=== PATIENT | male | born 1975 | race Caucasian/White ===

== ENCOUNTER 2018-12-26 13:30 | Inpatient (IN) | payer OTHER ==
[2018-12-26 19:57] VITALS: BMI 24.7
--- NOTE | 2018-12-26 20:40 | HP ---
CIWA Score Nausea/Vomitin Muscle Tremors: 4-Moderate,w/Arms Extend Anxiety: 4-Mod. Anxious/Guarded Agitation: 4-Moderately Restless Paroxysmal Sweats: 3 Orientation: 2-Disoriented Date<2 days Tacttile Disturbances: 3-Moderate Itch/Numb/Burn Auditory Disturbances: 2-Mild Harshness/Frighten Visual Disturbances: 2-Mild Sensitivity Headache: 0-None Present CIWA-Ar Total Score: 27 - Admission Criteria OASAS Guidelines: Admission for Medically Managed Detox: Requires at least one of the followin. CIWA greater than 12 2. Seizures within the past 24 hours 3. Delirium tremens within the past 24 hours 4. Hallucinations within the past 24 hours 5. Acute intervention needed for co occurring medical disorder 6. Acute intervention needed for co occurring psychiatric disorder 7. Severe withdrawal that cannot be handled at a lower level of care (continued vomiting, continued diarrhea, abnormal vital signs) requiring intravenous medication and/or fluids 8. Patient presents the following: CIWA greater than 12 Admission Criteria Met: Admission criteria met Admission ROS [facility] Chief Complaint: SEEKING DETOX TXMENT FOR WORSENING WITHDRAWAL SX'S Allergies/Adverse Reactions: Allergies Allergy/AdvReac Type Severity Reaction Status Date / Time No Known Allergies Allergy Verified 12/26/18 20:37 History of Present Illness: 43 Y.O. MALE WITH HX/O POLYSUBSTANCE ABUSE HERE FOR ALCOHOL DETOX. CLIENT IS REFERRED BY HIS OUTPATIENT METHADONE PROGRAM -MMTP. HE REPORTS HIS IS ON METHADONE 115 MG DAILY. LDM TODAY. THIS IS HIS FIRAST ADMISSION HERE. REPORTS LAST DETOX SEVERAL MONTHS AGO. PRESENTS TODAY WITH C/O WORSENING WITHDRAWAL SX' S. CIWA 27. UTOX +THC, PÉREZ, OPI, MTD, BAR, BZO. DENIES ANY SIGNIFICANT PERIOD OF CLEAN TIME. DENIES HX/O SEIZURE, SI/HI/AVH, DRUG OVERDOSE. REPORTS HE DRINKS DAILY. LAST DRINK THIS MORNING. HOMLESS, UNEMPLOYED, DENIES LEGALS. PMHX- DENIES PSYCH-DENIES Exam Limitations: No Limitations - Ebola screening Have you traveled outside of the country in the last 21 days: No Have you had contact with anyone from an Ebola affected area: No Have you been sick,other than usual withdrawal symptoms: No - Review of Systems Constitutional: Chills, Loss of Appetite, Malaise, Night Sweats, Changes in sleep EENT: reports: Nose Congestion Respiratory: reports: No Symptoms reported Cardiac: reports: No Symptoms Reported GI: reports: Nausea, Poor Fluid Intake : reports: No Symptoms Reported Musculoskeletal: reports: Other (GENRALIZED MALAISE) Integumentary: reports: Flushing Neuro: reports: No Symptoms reported, Headache, Tremors Endocrine: reports: No Symptoms Reported Hematology: reports: No Symptoms Reported Psychiatric: reports: Orientated x3, Agitated, Anxious, Depressed Other Systems: Reviewed and Negative Patient History - Patient Medical History Hx Anemia: No Hx Asthma: No Hx Chronic Obstructive Pulmonary Disease (COPD): No Hx Cancer: No Hx Cardiac Disorders: No Hx Congestive Heart Failure: No Hx Hypertension: No Hx Hypercholesterolemia: No Hx Pacemaker: No HX Cerebrovascular Accident: No Hx Seizures: No Hx Dementia: No Hx Diabetes: No Hx Gastrointestinal Disorders: No Hx Liver Disease: No Hx Genitourinary Disorders: No Hx Sexually Transmitted Disorders: No Hx Renal Disease (ESRD): No Hx Thyroid Disease: No Hx Human Immunodeficiency Virus (HIV): No Hx Hepatitis C: No Hx Depression: No Hx Suicide Attempt: No Hx Bipolar Disorder: No Hx Schizophrenia: No Other Medical History: DENIES - Patient Surgical History Past Surgical History: No - PPD History Previous Implant?: Yes Documented Results: Negative w/o proof Implanted On Prior [facility] Admission?: No PPD to be Administered?: Yes - Smoking Cessation Smoking history: Current every day smoker Have you smoked in the past 12 months: Yes Aproximately how many cigarettes per day: 40 Cigars Per Day: 0 Hx Chewing Tobacco Use: No Initiated information on smoking cessation: Yes 'Breaking Loose' booklet given: 12/26/18 - Substance & Tx. History Hx Alcohol Use: Yes Hx Substance Use: Yes Substance Use Type: Alcohol, Cocaine, Heroin, Marijuana, Tranquilizers (XANAX) Hx Substance Use Treatment: Yes ([facility] - Substances Abused VODKA Route: Oral Frequency: Daily Amount used: 5 PINTS Age of first use: 9 Date of Last Use: 12/26/18 XANAX Route: Oral Frequency: Daily Amount used: 10MG Age of first use: 20 Date of Last Use: 12/26/18 COCAINE Route: Smoking Frequency: Daily Amount used: $300 Age of first use: 20 Date of Last Use: 12/22/18 HEROIN Route: Injection Frequency: Daily Amount used: 10 BAGS Age of first use: 9 Date of Last Use: 12/26/18 Family Disease History - Family Disease History Family History: Denies (ESTRANGED) Admission Physical Exam [facility] - Vital Signs Vital Signs: Vital Signs - 24 hr 12/26/18 19:54 Temperature 97.9 F Pulse Rate 80 Respiratory 18 Rate Blood Pressure 138/79 - Physical General Appearance: Yes: Appropriately Dressed, Moderate Distress, Tremorous, Irritable, Anxious, Other (FLUSHED DISHELVED UNKEPT) HEENTM: Yes: EOMI, Normal ENT Inspection, Normocephalic, Normal Voice, BREANNE, Nasal Congestion, Other (MISSING TEETH) Respiratory: Yes: Chest Non-Tender, Lungs Clear, Normal Breath Sounds, No Respiratory Distress, No Accessory Muscle Use Neck: Yes: No masses,lesions,Nodules, Supple, Trachea in good position Breast: Yes: Breast Exam Deferred Cardiology: Yes: Regular Rhythm, Regular Rate, S1, S2 Abdominal: Yes: Normal Bowel Sounds, Non Tender, Flat, Soft Genitourinary: Yes: Within Normal Limits (NO C/O OFFERED) Back: Yes: Normal Inspection Musculoskeletal: Yes: full range of Motion, Gait Steady Extremities: Yes: Normal Range of Motion, Non-Tender, Tremors, Swelling (PUFFY HANDS) 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: Yes: Alert, Motor Strength 5/5 Integumentary: Yes: Warm, Other (FLUSHED PUFFY DIRTY/ UNKEPT) Lymphatic: Yes: Within Normal Limits - Diagnostic (1) Polysubstance dependence including opioid drug with daily use Current Visit: Yes Status: Acute (2) Alcohol dependence with uncomplicated withdrawal Current Visit: Yes Status: Acute (3) Anxiolytic withdrawal without complication Current Visit: Yes Status: Acute (4) Cannabis dependence, uncomplicated Current Visit: Yes Status: Acute (5) Cocaine abuse, uncomplicated Current Visit: Yes Status: Acute (6) Methadone maintenance therapy patient Current Visit: Yes Status: Acute (7) Dry mucous membranes Current Visit: Yes Status: Acute (8) At risk for dehydration due to poor fluid intake Current Visit: Yes Status: Acute (9) Nicotine dependence Current Visit: Yes Status: Acute Qualifiers: Nicotine product type: cigarettes Substance use status: uncomplicated Qualified Code(s): F17.210 - Nicotine dependence, cigarettes, uncomplicated (10) Homeless Current Visit: Yes Status: Acute (11) Flushed complexion Current Visit: Yes Status: Acute Cleared for Admission [facility] - Detox or Rehab [facility] Level of Care: Medically Managed Detox Regimen/Protocol: Librium Claeared for Rehab Admission: No [facility] Breath Alcohol Content Breath Alcohol Content: 0 Urine Drug Screen - Results Drug Screen Negative: No Urine Drug Screen Results: THC-Marijuana, PÉREZ-Cocaine, OPI-Opiates, BAR- Barbiturates, BZO-Benzodiazepines, MTD-Methadone Inpatient Rehab Admission - Rehab Decision to Admit Inpatient rehab admission?: No
[2018-12-26] MEDS ORDERED: P-EPHED 60MG/TRIPROLIDI 2.5MG TABLET PO PRN (20:57)
[2018-12-26] MEDS ORDERED: MENTHOL/PHENOL 1 EACH UD MM PRN (20:57)
[2018-12-26] MEDS ORDERED: guaiFENesin/D-METHORPHAN HB 10 ML UNIT-DOSE CUPS PO PRN (20:57)
[2018-12-26] MEDS ORDERED: LOPERAMIDE HCL 2 MG CAPSULE PO PRN (20:57)
[2018-12-26] MEDS ORDERED: hydrOXYzine PAMOATE 50 MG CAPSULE (FP) PO PRN (20:57)
[2018-12-26] MEDS ORDERED: MAG HYDROX/AL HYDROX/SIMETH 30 ML UNIT-DOSE CUP PO PRN (20:57)
[2018-12-26] MEDS ORDERED: MAGNESIUM HYDROX 2400MG/30ML ORAL SUSPENSION 30 ML CUP PO PRN (20:57)
[2018-12-26] MEDS ORDERED: ACETAMINOPHEN 325 MG TABLET (FP) PO PRN (20:57)
[2018-12-26] MEDS ORDERED: IBUPROFEN 400 MG TABLET (FP) PO PRN (20:57)
[2018-12-26] MEDS ORDERED: MAGNESIUM CITRATE 300 ML BOTTLE PO PRN (20:57)
[2018-12-26] MEDS ORDERED: MELATONIN 5 MG TABLETS PO PRN (22:00)
[2018-12-26] MEDS ORDERED: chlordiazePOXIDE HCL 25 MG CAPSULE PO PRN (23:17)
[2018-12-26] MEDS: chlordiazePOXIDE HCL 25 MG CAPSULE PO SCH (23:43)
[2018-12-26] MEDS: THIAMINE HCL 100 MG TABLET (FP) PO SCH (23:44)
[2018-12-27] MEDS: chlordiazePOXIDE HCL 25 MG CAPSULE PO SCH ×4 (06:18→22:17)
[2018-12-27] MEDS ORDERED: METHADONE HCL 10 MG TABLET ONE (09:57)
[2018-12-27] MEDS ORDERED: METHADONE HCL 5 MG TABLET ONE (09:58)
[2018-12-27] MEDS ORDERED: METHADONE HCL 40 MG DISPERSABLE TABLET ONE (09:58)
[2018-12-27] MEDS ORDERED: METHADONE HCL 40 MG DISPERSABLE TABLET PO ONE (10:00)
[2018-12-27] MEDS ORDERED: METHADONE 80 MG, METHADONE 30 MG, METHADONE 5 MG PO ONE (10:00)
[2018-12-27] MEDS ORDERED: METHADONE 80 MG, METHADONE 10 MG PO ONE (10:00)
[2018-12-27] MEDS ORDERED: METHADONE HCL 10 MG TABLET PO ONE (10:00)
[2018-12-27] MEDS: NICOTINE 21 MG/24 HOURS TOPICAL PATCH TD SCH (10:02)
[2018-12-27] MEDS: PRENATAL VITAMINS W/ FOLIC ACID TABLET (FP) PO SCH (10:02)
[2018-12-27] MEDS: NICOTINE POLACRILEX 4 MG GUM BC PRN ×3 (10:54→15:28)
--- NOTE | 2018-12-27 13:31 | PN ---
S CIWA - CIWA Score Nausea/Vomitin-Mild Nausea/No Vomiting Muscle Tremors: 4-Moderate,w/Arms Extend Anxiety: 4-Mod. Anxious/Guarded Agitation: 4-Moderately Restless Paroxysmal Sweats: 1-Minimal Palms Moist Orientation: 3-Disoriented Date>2 days Tacttile Disturbances: 0-None Auditory Disturbances: 0-None Visual Disturbances: 0-None Headache: 1-Very Mild CIWA-Ar Total Score: 18 [facility] Progress Note (SOAP) Subjective: tremor sweating anxiety poor concentration Objective: 12/27/18 13:36 Vital Signs Temperature 98.2 F 12/27/18 09:39 Pulse Rate 84 12/27/18 09:39 Respiratory Rate 18 12/27/18 09:39 Blood Pressure 134/81 12/27/18 09:39 O2 Sat by Pulse Oximetry (%) lab pending Assessment: 12/27/18 13:36 alcohol and benzo withdrawal sx Plan: continue detox
[2018-12-27] MEDS: BACITRACIN 0.9 GM PACKET TP SCH ×2 (13:57→22:33)
[2018-12-27 19:53] LABS: URINE APPEARANCE CLEAR; URINE BILIRUBIN NEGATIVE (<2.0 mg/dL); URINE COLOR DKYELLOW; URINE GLUCOSE (UA) NEGATIVE (NEGATIVE); URINE KETONE NEGATIVE (NEGATIVE); URINE LEUK ESTERASE NEGATIVE (NEGATIVE); URINE NITRITE NEGATIVE (NEGATIVE); URINE PROTEIN 1+ (NEGATIVE); URINE UROBILINOGEN 4.0 E.U/dl mg/dL (0.2-1.0)
[2018-12-27 20:02] LABS: URINE BACTERIA RARE /hpf (NONE SEEN); URINE MUCUS RARE
[2018-12-27] MEDS: THIAMINE HCL 100 MG TABLET (FP) PO SCH (21:54)
[2018-12-28] MEDS ORDERED: METHADONE HCL 10 MG TABLET ONE (05:02)
[2018-12-28] MEDS ORDERED: METHADONE HCL 5 MG TABLET ONE (05:03)
[2018-12-28] MEDS ORDERED: METHADONE HCL 40 MG DISPERSABLE TABLET ONE (05:03)
[2018-12-28] MEDS: chlordiazePOXIDE HCL 25 MG CAPSULE PO SCH ×3 (05:54→17:42)
[2018-12-28] MEDS: METHADONE 80 MG, METHADONE 30 MG, METHADONE 5 MG PO SCH (05:54)
[2018-12-28] MEDS: NICOTINE POLACRILEX 4 MG GUM BC PRN ×6 (05:56→19:38)
[2018-12-28] MEDS ORDERED: METHADONE HCL 10 MG TABLET PO SCH (06:00)
[2018-12-28] MEDS ORDERED: METHADONE HCL 40 MG DISPERSABLE TABLET PO SCH (06:00)
[2018-12-28] MEDS ORDERED: METHADONE 80 MG, METHADONE 10 MG PO SCH (06:00)
[2018-12-28] MEDS ORDERED: BACITRACIN 15 GM TUBE TOPICAL OINTMENT TP SCH (09:00)
[2018-12-28] MEDS: NICOTINE 21 MG/24 HOURS TOPICAL PATCH TD SCH (09:28)
--- NOTE | 2018-12-28 09:30 | PN ---
S CIWA - CIWA Score Nausea/Vomitin-Mild Nausea/No Vomiting Muscle Tremors: 3 Anxiety: 1-Mildly Anxious Agitation: 3 Paroxysmal Sweats: 1-Minimal Palms Moist Orientation: 3-Disoriented Date>2 days Tacttile Disturbances: 0-None Auditory Disturbances: 0-None Visual Disturbances: 0-None Headache: 1-Very Mild CIWA-Ar Total Score: 13 S Progress Note (SOAP) Subjective: patient requests to add methadone 20-30 mg more to 115 mg current dosage based on consultation with methadone program provider that unknown dosage were consumed dose of methadone on 12/23/18, 12/24/18, possible zero dosage of methadone on 12/25/18 case discussed with methadone program provider patient admitted to methadone program on 12/14/18 at 90 mg po daily upon discharged from [facility] received one dose of 90 mg on 12/14/18 at the methadone program patient admitted to [facility] on 12/14/18 discharged on 12/21/18 taking methadone 115 mg po patient returned to methadone program on 12/22/18 continue methadone 115 mg po daily with take home bottles of 115 mg no show on 12/25/18 return to methadone program on 12/26/18 received methadone 90 mg due to "computer switched". patient admitted to [facility] for alcohol and benzo detox on 12/26/18 received methadone 115 mg on 12/27/18 the mortgage underwriter concurred with the methadone provider that one 115 mg dose of methadone may worth to reassess second or third consecutive doses anxiety restlessness overly worry tremor sweating Objective: 12/28/18 15:59 Vital Signs Temperature 98.0 F 12/28/18 13:34 Pulse Rate 89 12/28/18 13:34 Respiratory Rate 18 12/28/18 13:34 Blood Pressure 138/85 12/28/18 13:34 O2 Sat by Pulse Oximetry (%) Laboratory Last Values Urine Color Dkyellow 12/27/18 15:40 Urine Appearance Clear 12/27/18 15:40 Urine pH 7.0 (5.0-8.0) 12/27/18 15:40 Ur Specific [place] 1.026 (1.010-1.035) 12/27/18 15:40 Urine Protein 1+ (NEGATIVE) H 12/27/18 15:40 Urine Glucose (UA) Negative (NEGATIVE) 12/27/18 15:40 Urine Ketones Negative (NEGATIVE) 12/27/18 15:40 Urine Blood Negative (NEGATIVE) 12/27/18 15:40 Urine Nitrite Negative (NEGATIVE) 12/27/18 15:40 Urine Bilirubin Negative (<2.0 mg/dL) 12/27/18 15:40 Urine Urobilinogen 4.0 e.u/dl mg/dL (0.2-1.0) 12/27/18 15:40 Ur Leukocyte Esterase Negative (NEGATIVE) 12/27/18 15:40 Urine WBC (Auto) 1 /hpf (3-5) 12/27/18 15:40 Urine RBC (Auto) 4 /hpf (0-3) 12/27/18 15:40 Urine Bacteria Rare /hpf (NONE SEEN) 12/27/18 15:40 Urine Mucus Rare 12/27/18 15:40 lab noted Assessment: 12/28/18 15:59 withdrawal sx Plan: continue detox
[2018-12-28] MEDS: PRENATAL VITAMINS W/ FOLIC ACID TABLET (FP) PO SCH (10:08)
[2018-12-28] MEDS: BACITRACIN 0.9 GM PACKET TP SCH ×2 (14:03→21:02)
[2018-12-28] MEDS ORDERED: FLUCONAZOLE 100 MG TABLET (UD) PO SCH (16:30)
[2018-12-28] MEDS: THIAMINE HCL 100 MG TABLET (FP) PO SCH (21:02)
[2018-12-28] MEDS ORDERED: traZODone HCL 50 MG TABLET (FP) PO ONE (22:00)
[2018-12-28] MEDS: chlordiazePOXIDE 5 MG CAPSULE PO SCH (22:41)
[2018-12-29] MEDS ORDERED: METHADONE HCL 40 MG DISPERSABLE TABLET ONE (05:06)
[2018-12-29] MEDS ORDERED: METHADONE HCL 5 MG TABLET ONE (05:06)
[2018-12-29] MEDS ORDERED: METHADONE HCL 10 MG TABLET ONE (05:06)
[2018-12-29] MEDS: BACITRACIN 0.9 GM PACKET TP SCH (05:42)
[2018-12-29] MEDS: chlordiazePOXIDE 5 MG CAPSULE PO SCH (05:42)
[2018-12-29] MEDS: METHADONE 80 MG, METHADONE 30 MG, METHADONE 5 MG PO SCH (05:43)
[2018-12-29] MEDS: NICOTINE POLACRILEX 4 MG GUM BC PRN (06:19)
[2018-12-29 06:51] VITALS: BP 123/73; PULSE 68; TEMP 97.3
[2018-12-29] MEDS ORDERED: chlordiazePOXIDE HCL 10 MG CAPSULE PO SCH (23:00)
--- NOTE | 2018-12-30 01:24 | DS ---
[facility] Detox Discharge Summary Admission Date: 12/26/18 Discharge Date: 12/29/18 - History Present History: Alcohol Dependence, Cannabis Dependence, Cocaine Dependence, Opioid Dependence, Sedative Dependence, MMTP Additional Comments: PATIENT ELECTED TO LEAVE DETOX UNIT AGAINST MEDICAL ADVICE PRIOR TO TIME OF ARRIVAL OF ELEVATOR CONSTRUCTOR HELPER ON DETOX UNIT. THUS, MEDICAL ASSESSMENT UNABLE TO BE DONE ON PATIENT PRIOR TO HER LEAVING THE DETOX UNIT. Pertinent Past History: M.M.T.P., Nicotine Dependence. - Physical Exam Results Vital Signs: Vital Signs Temperature 97.3 F L 12/29/18 06:50 Pulse Rate 68 12/29/18 06:50 Respiratory Rate 18 12/29/18 06:50 Blood Pressure 123/73 12/29/18 06:50 O2 Sat by Pulse Oximetry (%) Pertinent Admission Physical Exam Findings: WITHDRAWAL SYMPTOMS. Laboratory Tests 12/27/18 15:40 Urine Color Dkyellow Urine Appearance Clear Urine pH 7.0 Ur Specific [place] 1.026 Urine Protein 1+ H Urine Glucose (UA) Negative Urine Ketones Negative Urine Blood Negative Urine Nitrite Negative Urine Bilirubin Negative Urine Urobilinogen 4.0 e.u/dl Ur Leukocyte Esterase Negative Urine WBC (Auto) 1 Urine RBC (Auto) 4 Urine Bacteria Rare Urine Mucus Rare ADMISSION UA RESULTS NOTED. - Treatment Hospital Course: Detox Protocol Followed, Detoxed Safely - Medication Discharge Medications: Ambulatory Orders NK [No Known Home Medication] 12/26/18 - Diagnosis (1) Alcohol dependence with uncomplicated withdrawal Status: Acute (2) Anxiolytic withdrawal without complication Status: Acute (3) At risk for dehydration due to poor fluid intake Status: Acute (4) Cannabis dependence, uncomplicated Status: Acute (5) Cocaine abuse, uncomplicated Status: Acute (6) Dry mucous membranes Status: Acute (7) Flushed complexion Status: Acute (8) Homeless Status: Acute (9) Methadone maintenance therapy patient Status: Chronic (10) Nicotine dependence Status: Acute Qualifiers: Nicotine product type: cigarettes Substance use status: uncomplicated Qualified Code(s): F17.210 - Nicotine dependence, cigarettes, uncomplicated (11) Polysubstance dependence including opioid drug with daily use Status: Acute - AMA Did Patient Leave Against Medical Advice: Yes (PATIENT DID NOT WISH TO REMAIN TO COMPLETE DETOX REGIMEN.)
== END 2018-12-29 08:29 | disposition left against medical advice (07) | DRG 770 ==
LOC: YASAS 13:30 → Y3N 22:06
PROVIDERS: ADMIT Surgery; ATTEND Surgery
PROC: HZ2ZZZZ Detoxification Services for Substance Abuse Treatment (ICD-10-PCS; principal; 2018-12-26)
DX: F10.230 Alcohol dependence with withdrawal, uncomplicated (principal); F11.20 Opioid dependence, uncomplicated; F13.230 Sedative, hypnotic or anxiolytic dependence with withdrawal, uncomplicated; F12.20 Cannabis dependence, uncomplicated; F14.10 Cocaine abuse, uncomplicated; F17.210 Nicotine dependence, cigarettes, uncomplicated; R63.8 Other symptoms and signs concerning food and fluid intake; R68.2 Dry mouth, unspecified; R23.2 Flushing; Z59.0 Homelessness
CPT/HCPCS: 81003; 81015

== ENCOUNTER 2019-05-10 08:33 | Inpatient (IN) | payer OTHER ==
[2019-05-10 09:19] VITALS: BMI 22.3
--- NOTE | 2019-05-10 10:19 | HP ---
COWS - Scale Resting Pulse: 1= IN 81-100 Sweatin= Chills/Flushing Restless Observation: 1= Difficult to Sit Still Pupil Size: 0= Normal to Room Light Bone or Joint Aches: 2= Severe Diffuse Aches Runny Nose/ Eye Tearin= Runny Nose/Eyes GI Upset > 30mins: 2= Nausea/Diarrhea Tremor Observation: 0= None Yawning Observation: 0= None Anxiety or Irritability: 2=Irritable/Anxious Goose Flesh Skin: 0=Smooth Skin COWS Score: 11 CIWA Score Nausea/Vomitin-No Nausea/No Vomiting Muscle Tremors: 1-None Visible, but [place] Anxiety: 2 Agitation: 2 Paroxysmal Sweats: 2 Orientation: 0-Oriented Tacttile Disturbances: 2-Mild Itch/Numbness/Burn Auditory Disturbances: 0-None Visual Disturbances: 2-Mild Sensitivity Headache: 0-None Present CIWA-Ar Total Score: 11 - Admission Criteria OASAS Guidelines: Admission for Medically Managed Detox: Requires at least one of the followin. CIWA greater than 12 2. Seizures within the past 24 hours 3. Delirium tremens within the past 24 hours 4. Hallucinations within the past 24 hours 5. Acute intervention needed for co occurring medical disorder 6. Acute intervention needed for co occurring psychiatric disorder 7. Severe withdrawal that cannot be handled at a lower level of care (continued vomiting, continued diarrhea, abnormal vital signs) requiring intravenous medication and/or fluids 8. Admission ROS [facility] Allergies/Adverse Reactions: Allergies Allergy/AdvReac Type Severity Reaction Status Date / Time Pork/Porcine Containing Allergy Verified 05/10/19 09:10 Products History of Present Illness: This report was requested by: Bhargavi Ibarra | Reference #: [id number] Others' Prescriptions Patient Name: Esipnoza Gonzalez Date: 1975 Address: [address] [place] [address] Sex: Male Rx Written Rx Dispensed Drug Quantity Days Supply Prescriber Name 03/23/2019 03/23/2019 phenobarbital 32.4 mg tablet 60 10 David Corona Patient Name: Espinoza Gonzalez Date: 1975 Address: [address] [place] [id number] Sex: Male Rx Written Rx Dispensed Drug Quantity Days Supply Prescriber Name 03/01/2019 03/01/2019 phenobarbital 32.4 mg tablet 49 7 Baxi, Ami 03/01/2019 03/01/2019 lyrica 25 mg capsule 15 15 Baxgalen, Ami Patient Name: Espinoza Gonzalez Date: 1975 Address: [address] [place] [id number] Sex: Male Rx Written Rx Dispensed Drug Quantity Days Supply Prescriber Name 02/09/2019 02/13/2019 phenobarbital 32.4 mg tablet 30 30 Nayla White 02/12/2019 02/13/2019 phenobarbital 97.2 mg tablet 60 30 Cindy, Bechoy pt here requesting detox from heroin use ,claims use since age 9 , current daily use 25 bags ivdu in maxime LE , needles from exchange , denies sharing ,or re-using , + abscess 1 yr ago , OD- denies , latest use yesterday 11 pm , current symptoms as above, previously in MMTP RV until 2 mo ago MDD 135 mg , claims was late many times and was d/c 's 2/2 missed days . cocaine : 10 $/week via inhalation fentanyl -denies cannabis - " once in a while " methadone - " a capful " illicit use bup - illicit use benzo - " once in a while " tobacco : 2 ppd etoh : 3 pints vodka / day , starts drinking in the mornings , reports tremors if not drinking , latest use yesterday , denies blackouts or seizures . pmhx : denies pshx : denies meds : denies Exam Limitations: No Limitations - Ebola screening Have you traveled outside of the country in the last 21 days: No Have you had contact with anyone from an Ebola affected area: No Do you have a fever: No - Review of Systems Constitutional: See HPI EENT: reports: Nose Congestion Respiratory: reports: No Symptoms reported Cardiac: reports: No Symptoms Reported GI: reports: Diarrhea : reports: No Symptoms Reported Musculoskeletal: reports: See HPI Integumentary: reports: See HPI Neuro: reports: See HPI Endocrine: reports: No Symptoms Reported Psychiatric: reports: Orientated x3, Anxious Patient History - Patient Medical History Hx Anemia: No Hx Asthma: No Hx Chronic Obstructive Pulmonary Disease (COPD): No Hx Cancer: No Hx Cardiac Disorders: No Hx Congestive Heart Failure: No Hx Hypertension: No Hx Hypercholesterolemia: No Hx Pacemaker: No HX Cerebrovascular Accident: No Hx Seizures: No Hx Dementia: No Hx Diabetes: No Hx Gastrointestinal Disorders: No Hx Liver Disease: No Hx Genitourinary Disorders: No Hx Sexually Transmitted Disorders: No Hx Renal Disease (ESRD): No Hx Thyroid Disease: No Hx Human Immunodeficiency Virus (HIV): No Hx Hepatitis C: No Hx Depression: No Hx Suicide Attempt: No Hx Bipolar Disorder: No Hx Schizophrenia: No - Patient Surgical History Past Surgical History: No Hx Neurologic Surgery: No Hx Cataract Extraction: No Hx Cardiac Surgery: No Hx Lung Surgery: No Hx Breast Surgery: No Hx Breast Biopsy: No Hx Abdominal Surgery: No Hx Appendectomy: No Hx Cholecystectomy: No Hx Genitourinary Surgery: No Hx Section: No Hx Orthopedic Surgery: No Anesthesia Reaction: No - PPD History Date: 12/28/18 - Smoking Cessation Smoking history: Current every day smoker Have you smoked in the past 12 months: Yes Aproximately how many cigarettes per day: 40 Cigars Per Day: 0 Hx Chewing Tobacco Use: No Initiated information on smoking cessation: No - Substances abused Alcohol Substance route: Oral Frequency: Daily Amount used: 3 pints vodka Age of first use: 9 Date of last use: 05/09/19 Heroin Substance route: Injection Frequency: Daily Amount used: 25 bags Age of first use: 9 Date of last use: 05/09/19 Admission Physical Exam [facility] - Vital Signs Vital Signs: Vital Signs - 24 hr 05/10/19 09:12 Temperature 97.3 F L Pulse Rate 90 Respiratory 16 Rate Blood Pressure 133/79 - Physical General Appearance: Yes: Mild Distress HEENTM: Yes: Hearing grossly Normal, Normocephalic, Normal Voice Respiratory: Yes: Lungs Clear, Normal Breath Sounds, No Respiratory Distress, No Accessory Muscle Use Neck: Yes: No masses,lesions,Nodules, Trachea in good position Cardiology: Yes: Regular Rhythm, Regular Rate, S1, S2, Tachycardia Abdominal: Yes: Non Tender, Soft Back: Yes: Normal Inspection Musculoskeletal: Yes: full range of Motion, Gait Steady Extremities: Yes: Normal Range of Motion, Non-Tender 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: Yes: Fully Oriented, Alert, Motor Strength 5/5 Integumentary: Yes: Warm, Track Gonzalez (maxime LE), Other (left UE scarring from prior self- inflicted injuries whilst using PCP) - Diagnostic (1) Alcohol dependence with uncomplicated withdrawal Current Visit: Yes Status: Acute (2) Nicotine dependence Current Visit: No Status: Acute Qualifiers: Nicotine product type: cigarettes Substance use status: uncomplicated Qualified Code(s): F17.210 - Nicotine dependence, cigarettes, uncomplicated Breathalyzer - Breathalyzer Breathalyzer: 0 Urine Drug Screen - Test Device Lot number: [id number] Expiration date: 02/20/21 - Control Is test valid?: Yes - Results Drug screen NEGATIVE: No Urine drug screen results: THC-Marijuana, PÉREZ-Cocaine, FEN-Fentanyl, MOP-Opiates , MTD-Methadone, BZO-Benzodiazepines, BUP-Suboxone Inpatient Rehab Admission - Rehab Decision to Admit Inpatient rehab admission?: No
[2019-05-10] MEDS ORDERED: MENTHOL/PHENOL 1 EACH UD MM PRN (10:32)
[2019-05-10] MEDS ORDERED: ACETAMINOPHEN 325 MG TABLET (FP) PO PRN ×2 (10:32)
[2019-05-10] MEDS ORDERED: hydrOXYzine PAMOATE 25 MG CAPSULE (FP) PO PRN (10:32)
[2019-05-10] MEDS ORDERED: MAGNESIUM CITRATE 300 ML BOTTLE PO PRN (10:32)
[2019-05-10] MEDS ORDERED: NICOTINE POLACRILEX 2 MG GUM BUC PRN (10:32)
[2019-05-10] MEDS ORDERED: MAGNESIUM HYDROX 2400MG/30ML ORAL SUSPENSION 30 ML CUP PO PRN (10:32)
[2019-05-10] MEDS ORDERED: BISMUTH SUBSALICYLATE 262 MG/15 ML BTL PO PRN (10:32)
[2019-05-10] MEDS ORDERED: MAG HYDROX/AL HYDROX/SIMETH 30 ML UNIT-DOSE CUP PO PRN (10:32)
[2019-05-10] MEDS ORDERED: IBUPROFEN 400 MG TABLET (FP) PO PRN (10:32)
[2019-05-10] MEDS ORDERED: METHADONE HCL 10 MG TABLET (FOR DETOX USE ONLY) PO ONE (11:40)
[2019-05-10] MEDS: chlordiazePOXIDE HCL 25 MG CAPSULE PO SCH ×3 (11:50→22:27)
[2019-05-10 14:27] LABS: HEMATOCRIT 38.6 % (35.4-49); HEMOGLOBIN 12.7 GM/dL (11.7-16.9); MCH 29.5 pg (25.7-33.7); MEAN CELL VOLUME 89.4 fl (80-96); MEAN PLT VOLUME 9.2 fl (7.5-11.1); RBC 4.32 M/mm3 (4.00-5.60); RDW 17.8 % (11.9-15.9); WHITE BLOOD COUNT 8.7 K/mm3 (4.0-10.0)
[2019-05-10 14:35] LABS: ALBUMIN 3.8 g/dl (3.4-5.0); BILIRUBIN,TOTAL 0.2 mg/dL (0.2-1); BLOOD UREA NITROGEN 18.5 mg/dL (7-18); CALCIUM 8.8 mg/dL (8.5-10.1); CREATININE 0.9 mg/dL (0.55-1.3); POTASSIUM 3.6 mmol/L (3.5-5.1); TOT PROT 7.4 g/dl (6.4-8.2)
[2019-05-10 14:42] LABS: PLATELET COUNT 221 K/MM3 (134-434)
--- NOTE | 2019-05-10 15:23 | EKG ---
Test Reason : Blood Pressure : / mmHG Vent. Rate : 079 BPM Atrial Rate : 079 BPM P-R Int : 124 ms QRS Dur : 094 ms QT Int : 418 ms P-R-T Axes : 048 052 057 degrees QTc Int : 479 ms NORMAL SINUS RHYTHM MINIMAL VOLTAGE CRITERIA FOR LVH, MAY BE NORMAL VARIANT BORDERLINE ECG NO PREVIOUS ECGS AVAILABLE Confirmed by YANIQUE VALE MD ([id number]) on 05/10/2019 3:23:20 PM Referred By: Confirmed By:YANIQUE VALE MD
[2019-05-10] MEDS: NICOTINE POLACRILEX 4 MG GUM BUC PRN ×2 (15:35→22:27)
[2019-05-10] MEDS: chlordiazePOXIDE HCL 25 MG CAPSULE PO PRN (15:41)
[2019-05-10] MEDS: THIAMINE HCL 100 MG TABLET (FP) PO SCH (22:26)
[2019-05-10] MEDS: MELATONIN 5 MG TABLETS PO PRN (22:28)
[2019-05-11] MEDS: chlordiazePOXIDE HCL 25 MG CAPSULE PO SCH ×4 (05:07→22:02)
[2019-05-11] MEDS: NICOTINE POLACRILEX 4 MG GUM BUC PRN ×7 (05:09→22:02)
[2019-05-11] MEDS: chlordiazePOXIDE HCL 25 MG CAPSULE PO PRN ×3 (08:35→19:08)
[2019-05-11] MEDS ORDERED: METHADONE HCL 10 MG TABLET (FOR DETOX USE ONLY) ONE (09:32)
[2019-05-11] MEDS ORDERED: METHADONE HCL 5 MG TABLET (FOR DETOX USE ONLY) ONE (09:32)
[2019-05-11] MEDS ORDERED: TRIMETHOBENZAMIDE HCL 200MG/2ML INJ IM PRN (09:43)
[2019-05-11] MEDS ORDERED: P-EPHED 60MG/TRIPROLIDI 2.5MG TABLET PO PRN (09:44)
[2019-05-11] MEDS ORDERED: METHADONE (DETOX) 20 MG, METHADONE (DETOX) 5 MG PO ONE (10:00)
[2019-05-11] MEDS: PRENATAL VITAMINS W/ FOLIC ACID TABLET (FP) PO SCH (10:07)
[2019-05-11] MEDS ORDERED: METHADONE HCL 10 MG TABLET PO ONE (10:46)
[2019-05-11] MEDS ORDERED: METHADONE HCL 5 MG TABLET (FOR DETOX USE ONLY) PO ONE (11:45)
--- NOTE | 2019-05-11 15:02 | PN ---
S CIWA - CIWA Score Nausea/Vomitin Muscle Tremors: 2 Anxiety: 5 Agitation: 3 Paroxysmal Sweats: 3 Orientation: 0-Oriented Tacttile Disturbances: 0-None Auditory Disturbances: 0-None Visual Disturbances: 2-Mild Sensitivity Headache: 0-None Present CIWA-Ar Total Score: 20 BHS COWS - Scale Resting Pulse: 1= [place] 81-100 Sweatin=Flushed/Facial Moisture Restless Observation: 1= Difficult to Sit Still Pupil Size: 0= Normal to Room Light Bone or Joint Aches: 2= Severe Diffuse Aches Runny Nose/ Eye Tearin= Runny Nose/Eyes GI Upset > 30mins: 3= Vomiting/Diarrhea Tremor Observation of Outstretched Hands: 2= Slight Tremor Visible Yawning Observation: 1= 1-2x During Session Anxiety or Irritability: 4=Extreme Anxiety Goose Flesh Skin: 0=Smooth Skin COWS Score: 18 BHS Progress Note (SOAP) Subjective: Anxious, Body Aches, Tremors, Nausea, Diarrhea, Stomach Cramping, Runny Nose, Sweating, Hot / Cold Sensations, Interrupted Sleep. Objective: PATIENT A & O X 3, OBSERVED AMBULATING ON UNIT UNASSISTED. IN NO ACUTE DISTRESS. 05/11/19 15:00 Vital Signs Temperature 97.5 F L 05/11/19 13:42 Pulse Rate 83 05/11/19 13:42 Respiratory Rate 18 05/11/19 13:42 Blood Pressure 132/94 05/11/19 13:42 O2 Sat by Pulse Oximetry (%) Laboratory Tests 05/10/19 05/10/19 05/10/19 13:00 13:00 13:00 WBC 8.7 RBC 4.32 Hgb 12.7 Hct 38.6 MCV 89.4 MCH 29.5 MCHC 33.0 RDW 17.8 H Plt Count 221 MPV 9.2 Sodium 144 Potassium 3.6 Chloride 107 Carbon Dioxide 32 Anion Gap 5 L BUN 18.5 H Creatinine 0.9 Est GFR (CKD-EPI)AfAm 122.52 Est GFR (CKD-EPI)NonAf 105.71 Random Glucose 80 Calcium 8.8 Total Bilirubin 0.2 AST 8 L ALT 27 Alkaline Phosphatase 69 Total Protein 7.4 Albumin 3.8 RPR Titer Nonreactive LABS NOTED. Assessment: 05/11/19 15:00 WITHDRAWAL SYMPTOMS. Plan: CONTINUE DETOX. INCREASE DAILY PO WATER INTAKE. PRN PEPTO-BISMOL PO FOR DIARRHEA. PRN TIGAN IM FOR NAUSEA / VOMITING. DUE TO SEVERITY AND VOLUME OF WITHDRAWAL / DETOX SYMPTOMS THAT PATIENT IS PRESENTING WITH TODAY, ADDITIONAL 5 MG PO OF METHADONE DETOX ORDERED FOR TODAY. PRN ACITFED PO ORDERED FOR RUNNY NOSE.
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
[2019-05-11] MEDS: THIAMINE HCL 100 MG TABLET (FP) PO SCH (21:45)
[2019-05-11] MEDS: BACITRACIN 15 GM TUBE TOPICAL OINTMENT TP SCH (21:45)
[2019-05-12] MEDS: NICOTINE POLACRILEX 4 MG GUM BUC PRN ×7 (00:47→22:58)
[2019-05-12] MEDS: chlordiazePOXIDE HCL 25 MG CAPSULE PO PRN ×3 (03:31→18:55)
[2019-05-12] MEDS: chlordiazePOXIDE HCL 25 MG CAPSULE PO SCH ×4 (05:25→22:57)
[2019-05-12] MEDS: METHOCARBAMOL 500 MG TABLET PO PRN ×2 (06:04→11:54)
[2019-05-12] MEDS ORDERED: METHADONE HCL 10 MG TABLET (FOR DETOX USE ONLY) PO ONE (10:00)
[2019-05-12] MEDS: PRENATAL VITAMINS W/ FOLIC ACID TABLET (FP) PO SCH (10:04)
[2019-05-12] MEDS: BACITRACIN 15 GM TUBE TOPICAL OINTMENT TP SCH ×2 (11:00→23:06)
[2019-05-12] MEDS ORDERED: LORazepam 2 MG/ML SDV VIAL ONE (12:14)
--- NOTE | 2019-05-12 12:41 | PN ---
S CIWA - CIWA Score Nausea/Vomitin Muscle Tremors: 3 Anxiety: 5 Agitation: 4-Moderately Restless Paroxysmal Sweats: 3 Orientation: 0-Oriented Tacttile Disturbances: 1-Very Mild Itch/Numbness Auditory Disturbances: 0-None Visual Disturbances: 0-None Headache: 0-None Present CIWA-Ar Total Score: 18 BHS COWS - Scale Resting Pulse: 1= ID [id number] Sweatin=Flushed/Facial Moisture Restless Observation: 1= Difficult to Sit Still Pupil Size: 0= Normal to Room Light Bone or Joint Aches: 2= Severe Diffuse Aches Runny Nose/ Eye Tearin= None GI Upset > 30mins: 1= Stomach Cramp Tremor Observation of Outstretched Hands: 2= Slight Tremor Visible Yawning Observation: 1= 1-2x During Session Anxiety or Irritability: 4=Extreme Anxiety Goose Flesh Skin: 0=Smooth Skin COWS Score: 14 BHS Progress Note (SOAP) Subjective: Anxious, Restless, Tremors, Sweating. Objective: PATIENT A & O X 3, OBSERVED AMBULATING ON UNIT UNASSISTED. IN NO ACUTE DISTRESS. 05/12/19 12:43 Vital Signs Temperature 97.6 F 05/12/19 09:21 Pulse Rate 84 05/12/19 09:21 Respiratory Rate 20 05/12/19 09:21 Blood Pressure 133/91 05/12/19 09:21 O2 Sat by Pulse Oximetry (%) Laboratory Tests 05/10/19 05/10/19 05/10/19 13:00 13:00 13:00 WBC 8.7 RBC 4.32 Hgb 12.7 Hct 38.6 MCV 89.4 MCH 29.5 MCHC 33.0 RDW 17.8 H Plt Count 221 MPV 9.2 Sodium 144 Potassium 3.6 Chloride 107 Carbon Dioxide 32 Anion Gap 5 L BUN 18.5 H Creatinine 0.9 Est GFR (CKD-EPI)AfAm 122.52 Est GFR (CKD-EPI)NonAf 105.71 Random Glucose 80 Calcium 8.8 Total Bilirubin 0.2 AST 8 L ALT 27 Alkaline Phosphatase 69 Total Protein 7.4 Albumin 3.8 RPR Titer Nonreactive LABS NOTED. 05/12/19 12:45 Assessment: 05/12/19 12:46 WITHDRAWAL SYMPTOMS. Plan: CONTINUE DETOX. INCREASE DAILY PO WATER INTAKE.
--- NOTE | 2019-05-12 12:55 | PN ---
[facility] Progress Note Note: [employer] HEARD SOUND OF SOMETHING HITTING FLOOR IN HALLWAY AROUND CORNER FROM NURSES' STATION. WHEN [employer] WENT TO INVESTIGATE, PATIENT WAS LYING ON FLOOR. PATIENT THEN BEGAN CONVULSING WHILE LYING ON FLOOR, APPARENTLY HAVING A SEIZURE. CONVULSING CONTINUED INTERMITTENTLY FOR SEVERAL MINUTES. PATIENT DIAPHORETIC, SPAT UP SMALL AMOUNT OF MATERIAL WHILE LYING ON FLOOR. BGM: 86. STAFF UNABLE TO OBTAIN VITAL SIGNS DUE TO SEVERITY OF CONVULSING. NO EVIDENT SIGN OF WOUND OR INJURY NOTED ON PATIENT'S HEAD, UNCLEAR IF HE HIT HEAD WHEN HE FELL TO FLOOR. OS 6L / MIN. ADMINISTERED VIA NASAL CANULA. NO HISTORY OF SEIZURES REPORTED BY PATIENT ON DETOX ADMISSION ASSESSMENT. STAT DOSE OF ATIVAN, 2 MG IM ADMINISTERED. [facility] FALL PROTOCOL # [address] IMPLEMENTED[address]PORT GIVEN TO DR. LOZA AT [facility]. PATIENT TAKEN VIA AMBULANCE TO [facility] FOR FURTHER MEDICAL EVALUATION. Sharad VALLES NP
--- NOTE | 2019-05-12 13:49 | PN ---
[facility] Progress Note Note: Psychiatric nurse practitioner note: Patient transferred via ambulance to [facility] ER after convulsing while lying on the floor. Patient denies h/o seizures upon admission and during psychiatric consultation. Wellbutrin 150mg XL was ordered as patient reported being prescribed medication by outside provider. Wellbutrin 150mg XL to be discontinued.
--- NOTE | 2019-05-12 18:05 | PN ---
[facility] Progress Note Note: PATIENT WAS RETURNED TO [facility] AFTER BEING EVALUATED IN [facility] ER AFTER BEING SWENT THERE FOR SEIZURE CUCO T OCCURRED ON DETOX UNIT. PATIENT COMPLETED ALL REQUIRED TESTING AT [facility]; HOWEVER, PATIENT ELOPED FROM [facility] ER BEFORE COMPLETING REQUIRED DISCHARGE PAPERWORK FROM ER. TOP PRECIPITATOR OPERATOR (NOT AMBULANCE) RETURNED PATIENT TO [facility] A SHORT WHILE. ACCORDING TO SECURITY STAFF MEMBER, TOP PRECIPITATOR OPERATOR DROPPED PATIENT OFF OUTSIDE OF THE [facility] WHILE MEDICAL STAFF WERE ADDRESSING A RAPID RESPONSE SITUATION INVOLVING ANOTHER PATIENT IN [facility] PARKING LOT. WHILE ADDRESSING RAPID RESPONSE, PATIENT SEEN WALKING IN PARKING LOT ATTEMPTING TO SMOKE A CIGARETTE. PATIENT ASKED TO REMAIN INSIDE [facility] UNTIL ASSESSMENT / SEARCH COULD BE CONDUCTED. PATIENT SEARCHED AND MEDICALLY ASSESSED. PATIENT A & O X 3, OBSERVED AMBULATING UNASSISTED. IN NO ACUTE DISTRESS. PATIENT DENIES HEAD PAIN. NO ERYTHEMA, WOUNDS, SWELLING, OR UNUSUAL DISCHARGE NOTED ON PATIENT'S HEAD. HEAT CT SCAN WAS COMPLETED AT [facility] ORDERED (RESULT: NORMAL CT SCAN OF HEAD WITH NO EVIDENCE OF ACUTE INTRACRANIAL PATHOLOGY). VS: BP: 116/77; P: 80; RR: 17; T: 97.4; O2: 99 %. FOR THE SAKE OF PATIENT SAFETY, PATIENT PERMITTED TO REMAIN ON DETOX UNIT FOR TIME BEING DESPITE FACT THAT THE ELOPED FROM [facility] ER. PATIENT WILL BE MONITORED BY DETOX UNIT MEDICAL / NURSING STAFF FOR SAFETY. DR. LEMON CONSULTED ON THIS MATTER. MAGNESIUM LEVEL ORDERED DUE TO HISTORY OF SEIZURE THAT OCCURRED EARLIER TODAY. DUE TO UNUSUAL CIRCUMSTANCES PERTAINING TO PATIENT'S RETURN TO [facility], REPEAT UDS ORDERED. Sharad VALLES NP
[2019-05-12] MEDS: MELATONIN 5 MG TABLETS PO PRN (22:57)
[2019-05-12] MEDS: THIAMINE HCL 100 MG TABLET (FP) PO SCH (22:57)
[2019-05-13] MEDS ORDERED: chlordiazePOXIDE HCL 10 MG CAPSULE PO PRN
[2019-05-13] MEDS: chlordiazePOXIDE HCL 10 MG CAPSULE PO SCH ×2 (06:07→10:45)
[2019-05-13] MEDS: NICOTINE POLACRILEX 4 MG GUM BUC PRN ×2 (06:08→09:36)
[2019-05-13 09:09] VITALS: BP 113/75; PULSE 78; TEMP 97.4
[2019-05-13] MEDS ORDERED: METHADONE HCL 5 MG TABLET (FOR DETOX USE ONLY) ONE (09:15)
[2019-05-13] MEDS ORDERED: METHADONE HCL 10 MG TABLET (FOR DETOX USE ONLY) ONE (09:15)
[2019-05-13] MEDS: PRENATAL VITAMINS W/ FOLIC ACID TABLET (FP) PO SCH (09:35)
[2019-05-13] MEDS: METHOCARBAMOL 500 MG TABLET PO PRN (09:36)
[2019-05-13] MEDS: BACITRACIN 15 GM TUBE TOPICAL OINTMENT TP SCH (09:37)
[2019-05-13] MEDS ORDERED: METHADONE (DETOX) 10 MG, METHADONE (DETOX) 5 MG PO ONE (10:00)
--- NOTE | 2019-05-13 14:11 | DS ---
[facility] Detox Discharge Summary Admission Date: 05/10/19 Discharge Date: 05/13/19 - History Present History: Alcohol Dependence, Opioid Dependence Additional Comments: 43 years old male admitted o 05/10/19 for alcohol and opiate withdrawal sx long history of seizure treated with phenobarbital 32,5 mg po once daily last filled 02/2019 patient had seizure on 05/12/19 transport to ER discharged to alcohol and opiate detox facility patient insists to leave the detox facility today due to his shoes missing health teaching on risks of stop phenobarbital abruptly Pertinent Past History: seizure - Physical Exam Results Vital Signs: Vital Signs Temperature 97.4 F L 05/13/19 09:08 Pulse Rate 78 05/13/19 09:08 Respiratory Rate 18 05/13/19 09:08 Blood Pressure 113/75 05/13/19 09:08 O2 Sat by Pulse Oximetry (%) Pertinent Admission Physical Exam Findings: alcohol and opiate withdrawal sx Laboratory Last Values WBC 8.7 K/mm3 (4.0-10.0) 05/10/19 13:00 RBC 4.32 M/mm3 (4.00-5.60) 05/10/19 13:00 Hgb 12.7 GM/dL (11.7-16.9) 05/10/19 13:00 Hct 38.6 % (35.4-49) 05/10/19 13:00 MCV 89.4 fl (80-96) 05/10/19 13:00 MCH 29.5 pg (25.7-33.7) 05/10/19 13:00 MCHC 33.0 g/dl (32.0-35.9) 05/10/19 13:00 RDW 17.8 % (11.9-15.9) H 05/10/19 13:00 Plt Count 221 K/MM3 (134-434) 05/10/19 13:00 MPV 9.2 fl (7.5-11.1) 05/10/19 13:00 Sodium 144 mmol/L (136-145) 05/10/19 13:00 Potassium 3.6 mmol/L (3.5-5.1) 05/10/19 13:00 Chloride 107 mmol/L (98-107) 05/10/19 13:00 Carbon Dioxide 32 mmol/L (21-32) 05/10/19 13:00 Anion Gap 5 MMOL/L (8-16) L 05/10/19 13:00 BUN 18.5 mg/dL (7-18) H 05/10/19 13:00 Creatinine 0.9 mg/dL (0.55-1.3) 05/10/19 13:00 Est GFR (CKD-EPI)AfAm 122.52 05/10/19 13:00 Est GFR (CKD-EPI)NonAf 105.71 05/10/19 13:00 POC Glucometer 81 UNITS (80-120) 05/12/19 12:13 Random Glucose 80 mg/dL (74-106) 05/10/19 13:00 Calcium 8.8 mg/dL (8.5-10.1) 05/10/19 13:00 Total Bilirubin 0.2 mg/dL (0.2-1) 05/10/19 13:00 AST 8 U/L (15-37) L 05/10/19 13:00 ALT 27 U/L (13-61) 05/10/19 13:00 Alkaline Phosphatase 69 U/L (45-117) 05/10/19 13:00 Total Protein 7.4 g/dl (6.4-8.2) 05/10/19 13:00 Albumin 3.8 g/dl (3.4-5.0) 05/10/19 13:00 RPR Titer Nonreactive (NONREACTIVE) 05/10/19 13:00 lab noted - Treatment Hospital Course: Detox Protocol Followed, Responded well Patient has Accepted a Rehab Referral to: methadone maintenance program - Medication Discharge Medications: Ambulatory Orders NK [No Known Home Medication] 12/26/18 - Diagnosis (1) Alcohol dependence with uncomplicated withdrawal Current Visit: Yes Status: Acute (2) Opioid dependence with withdrawal Current Visit: Yes Status: Acute (3) Substance induced mood disorder Current Visit: Yes Status: Suspected (4) Nicotine dependence Current Visit: Yes Status: Acute Qualifiers: Nicotine product type: cigarettes Substance use status: in withdrawal Qualified Code(s): F17.213 - Nicotine dependence, cigarettes, with withdrawal (5) Seizure Current Visit: Yes Status: Chronic - AMA Did Patient Leave Against Medical Advice: Yes
[2019-05-14] MEDS ORDERED: chlordiazePOXIDE HCL 10 MG CAPSULE PO SCH (05:00)
[2019-05-14] MEDS ORDERED: METHADONE HCL 10 MG TABLET (FOR DETOX USE ONLY) PO ONE (10:00)
[2019-05-15] MEDS ORDERED: chlordiazePOXIDE HCL 10 MG CAPSULE PO ONE (05:00)
[2019-05-15] MEDS ORDERED: METHADONE HCL 5 MG TABLET (FOR DETOX USE ONLY) PO ONE (06:00)
== END 2019-05-13 10:30 | disposition left against medical advice (07) | DRG 770 ==
LOC: YASAS 08:33 → Y3N 11:07
PROVIDERS: ADMIT Surgery; ATTEND Surgery
PROC: HZ2ZZZZ Detoxification Services for Substance Abuse Treatment (ICD-10-PCS; principal; 2019-05-10)
DX: F11.23 Opioid dependence with withdrawal (principal); F10.230 Alcohol dependence with withdrawal, uncomplicated; F17.213 Nicotine dependence, cigarettes, with withdrawal; F19.24 Other psychoactive substance dependence with psychoactive substance-induced mood disorder; F39 Unspecified mood [affective] disorder; G40.89 Other seizures; R00.0 Tachycardia, unspecified
CPT/HCPCS: 36415; 80053; 82962; 85027; 86593; 93005; 93010

== ENCOUNTER 2019-05-12 13:06 | Emergency (ER) | payer OTHER ==
[2019-05-12 13:19] VITALS: BP 134/89; PULSE 94; TEMP 97; BMI 22.8
[2019-05-12] MEDS ORDERED: LORazepam 2 MG/ML SDV VIAL ONE ×2 (13:25→14:21)
--- NOTE | 2019-05-12 13:50 | PDOC ---
Attending Attestation - Resident Resident Name: OralmiguelnusratClayton - ED Attending Attestation I have performed the following: I have examined & evaluated the patient, The case was reviewed & discussed with the resident, I agree w/resident's findings & plan, Exceptions are as noted - HPI HPI: 05/12/19 13:46 43 yo male with h/o substance abuse, etoh and heroin here from [facility] where he has been admitted since 05/09 for withdrawal here today after seen walking down the hallway with cup coffee. suddenly fell ,then subsequently had a siezure. pt was intially given 2 ativan IV, then given 5 of versed x 2. no relief to seizure. on arrival pt is actively seizing, however distractable. history is limited. - Physicial Exam PE: 05/12/19 13:48 awake pt seizing but eyes open with voluntary movement. lungs clear bilat, heart reg no mrg. abd soft nt skin diaphoretic. nuero following siezure pt moves all four ext. - Medical Decision Making 05/12/19 13:49 43 yo male with h/o heroin / etoh here with seizure. due to exam on arrival pt seizure stopped with saline injection, no postictal period, concerns for psuedoseizure. pt asking for medication for seizure and heroin withdrawal. on exam pt awake alert moving all extremities. will obtain ct head due to h/o recent fall at [facility], labs u tox, medication. iv ativan. normal saline bolus. 05/12/19 14:23 pt states he has history of seizure disorder and has seen many neurologist, but cant remember of name in nuerologist. has been on phenobarb in the past. pt will likley require admission for unclear seizure history, seizure today and withdrawal etoh. 05/12/19 15:18 ct head negative. labs unremarkable. pt demanding medications. when meds were denied became aggressive yelling and threatening to staff. pt dc back to [facility]. d/w [facility] REWINDER. 05/12/19 16:19 pt was to be transferred to [facility], security came to bedside as pt was yelling at staff , pt eloped from security pending transfer to [facility].
[2019-05-12] MEDS ORDERED: SODIUM CHLORIDE 0.9% 1000 ML INFUS.BAG IV ONE (14:21)
[2019-05-12] MEDS ORDERED: NICOTINE POLACRILEX 2 MG GUM BUC PRN (14:56)
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
[2019-05-12 15:00] LABS: BASO % 0.7 % (0-2.0); EOS % 4.6 % (0-4.5); HEMATOCRIT 37.3 % (35.4-49); HEMOGLOBIN 12.3 GM/dL (11.7-16.9); LYMPH % 34.4 % (8-40); MCH 29.2 pg (25.7-33.7); MEAN CELL VOLUME 88.4 fl (80-96); MEAN PLT VOLUME 8.4 fl (7.5-11.1); MONO % 8.5 % (3.8-10.2); NEUT % 51.8 % (42.8-82.8); PLATELET COUNT 202 K/MM3 (134-434); RBC 4.22 M/mm3 (4.00-5.60); RDW 17.3 % (11.9-15.9); WHITE BLOOD COUNT 6.4 K/mm3 (4.0-10.0)
[2019-05-12 15:20] LABS: ALBUMIN 3.8 g/dl (3.4-5.0); BILIRUBIN,TOTAL 0.2 mg/dL (0.2-1); BLOOD UREA NITROGEN 11.9 mg/dL (7-18); CALCIUM 9.2 mg/dL (8.5-10.1); CREATININE 0.8 mg/dL (0.55-1.3); POTASSIUM 4.4 mmol/L (3.5-5.1); TOT PROT 7.1 g/dl (6.4-8.2)
[2019-05-13 15:02] LABS: COCAINE, UR NEGATIVE ng/ml (CUTOFF=300); OPIATES, URI NEGATIVE ng/ml (CUTOFF=300); PHENCYCLIDINE,URINE NEGATIVE ng/ml (CUTOFF=25); URINE AMPHETAMINES NEGATIVE ng/ml (CUTOFF=500); URINE BARBITURATES NEGATIVE ng/ml (CUTOFF=200)
[2019-05-13 15:04] LABS: URINE BENZODIAZEPINES POSITIVE ng/ml (CUTOFF=200)
[2019-05-13 15:05] LABS: METHADONE, UR POSITIVE ng/ml (CUTOFF=300)
== END 2019-05-12 16:00 | disposition short-term general hospital (02) ==
LOC: JER 13:06
PROC: 3E033NZ Introduction of Analgesics, Hypnotics, Sedatives into Peripheral Vein, Percutaneous Approach (ICD-10-PCS; principal; 2019-05-12)
DX: R56.9 Unspecified convulsions (principal)
CPT/HCPCS: 36415; 70450-TC; 80053; 80307; 85025; 96374; 99283-25; G0480

== ENCOUNTER 2019-09-29 11:07 | Inpatient (IN) | payer OTHER ==
[2019-09-29 11:31] VITALS: BMI 21.2
--- NOTE | 2019-09-29 12:03 | HP ---
COWS - Scale Resting Pulse: 0= [place] 80 or Below Sweatin= Chills/Flushing Restless Observation: 1= Difficult to Sit Still Pupil Size: 1= Pupils >than Normal Bone or Joint Aches: 2= Severe Diffuse Aches Runny Nose/ Eye Tearin= Nasal Congestion GI Upset > 30mins: 2= Nausea/Diarrhea Tremor Observation: 2= Slight Tremor Visible Yawning Observation: 1= 1-2x During Session Anxiety or Irritability: 2=Irritable/Anxious Goose Flesh Skin: 0=Smooth Skin COWS Score: 13 CIWA Score Nausea/Vomitin Muscle Tremors: 3 Anxiety: 3 Agitation: 2 Paroxysmal Sweats: No Perspiration Orientation: 0-Oriented Tacttile Disturbances: 1-Very Mild Itch/Numbness Auditory Disturbances: 1-Very Mild Visual Disturbances: 0-None Headache: 2-Mild CIWA-Ar Total Score: 14 - Admission Criteria OASAS Guidelines: Admission for Medically Managed Detox: Requires at least one of the followin. CIWA greater than 12 2. Seizures within the past 24 hours 3. Delirium tremens within the past 24 hours 4. Hallucinations within the past 24 hours 5. Acute intervention needed for co occurring medical disorder 6. Acute intervention needed for co occurring psychiatric disorder 7. Severe withdrawal that cannot be handled at a lower level of care (continued vomiting, continued diarrhea, abnormal vital signs) requiring intravenous medication and/or fluids 8. Admitting History and Physical - Admission Chief Complaint: i need help to stop using heroin and alcohol,also marijuana and methamphetamine abuse History of Present Illness: this 43 years old male with heroin,alcoholl dependence,marijuana and metamphetamine abused History Source: Patient Limitations to Obtaining History: No Limitations - Smoking History Smoking history: Unknown if ever smoked Have you smoked in the past 12 months: Yes Aproximately how many cigarettes per day: 40 - Alcohol/Substance Use Hx Alcohol Use: Yes History of Substance Use: reports: Heroin, Marijuana - Social History Usual Living Arrangement: Yes: Other (homeless) Occupation: unemploued History of Recent Travel: No Other Social History: homeless,unemployed,smoke 2 pack/sy,heroin,alcohol, dependence also marijuana and methamphetamine abused Admission ROS BHS - HPI Chief Complaint: i need help to stop using heroin,alcohol,also marijuana and methamphetamine abused Allergies/Adverse Reactions: Allergies Allergy/AdvReac Type Severity Reaction Status Date / Time Pork/Porcine Containing Allergy Verified 09/29/19 11:28 Products History of Present Illness: this 43 years old male with heroin ,alcohol dependence,marijuana and methamphetamine abused, seeking detox,withdrawal symptom seen in [facility] this morning seizure last 2018 syncope weight loss nicotine dependence 2 packs/day no significant period of sobriety plan for rehab after detox last detox 05/10/19 to 05/13/19 Exam Limitations: No Limitations - Ebola screening Have you traveled outside of the country in the last 21 days: No Have you had contact with anyone from an Ebola affected area: No - Review of Systems Constitutional: Chills, Loss of Appetite, Malaise, Night Sweats, Changes in sleep, Unintentional Wgt. Loss EENT: reports: Tearing, Nose Congestion Respiratory: reports: No Symptoms reported Cardiac: reports: No Symptoms Reported GI: reports: Diarrhea, Nausea, Poor Appetite : reports: No Symptoms Reported Musculoskeletal: reports: Back Pain, Joint Pain, Muscle Pain Integumentary: reports: Dryness Neuro: reports: Headache, Tremors Endocrine: reports: No Symptoms Reported Hematology: reports: No Symptoms Reported Psychiatric: reports: No Sypmtoms Reported, Judgement Intact, Mood/Affect Appropiate, Orientated x3 Other Systems: Reviewed and Negative Patient History - Patient Medical History Hx Anemia: No Hx Asthma: No Hx Chronic Obstructive Pulmonary Disease (COPD): No Hx Cancer: No Hx Cardiac Disorders: No Hx Congestive Heart Failure: No Hx Hypertension: No Hx Hypercholesterolemia: No Hx Pacemaker: No HX Cerebrovascular Accident: No Hx Seizures: No Hx Dementia: No Hx Diabetes: No Hx Gastrointestinal Disorders: No Hx Liver Disease: No Hx Genitourinary Disorders: No Hx Sexually Transmitted Disorders: No Hx Renal Disease (ESRD): No Hx Thyroid Disease: No Hx Human Immunodeficiency Virus (HIV): No (last 09/11 negative) Hx Hepatitis C: No Hx Depression: No Hx Suicide Attempt: No Hx Bipolar Disorder: No Hx Schizophrenia: No Other Medical History: no suicidal,no homicidal - Patient Surgical History Past Surgical History: No Hx Neurologic Surgery: No Hx Cataract Extraction: No Hx Cardiac Surgery: No Hx Lung Surgery: No Hx Breast Surgery: No Hx Breast Biopsy: No Hx Abdominal Surgery: No Hx Appendectomy: No Hx Cholecystectomy: No Hx Genitourinary Surgery: No Hx Section: No Hx Orthopedic Surgery: No Anesthesia Reaction: No - PPD History Previous Implant?: Yes Documented Results: Negative w/proof Implanted On Prior R Admission?: Yes Date: 12/28/18 Results: 0 mm PPD to be Administered?: No - Smoking Cessation Smoking history: Unknown if ever smoked Have you smoked in the past 12 months: Yes Aproximately how many cigarettes per day: 40 Cigars Per Day: 0 Hx Chewing Tobacco Use: No Initiated information on smoking cessation: Yes 'Breaking Loose' booklet given: 09/29/19 - Substance & Tx. History Hx Alcohol Use: Yes Hx Substance Use: Yes Substance Use Type: Alcohol, Heroin Hx Substance Use Treatment: Yes ([facility] 05/10/19 to 05/13/19) - Substances abused Alcohol Substance route: Oral Frequency: Daily Amount used: 4-5 pints vodka Age of first use: 9 Date of last use: 09/28/19 Heroin Substance route: Injection Frequency: Daily Amount used: 27 bags Age of first use: 9 Date of last use: 09/28/19 Marijuana/Hashish Substance route: Smoking Frequency: Daily Amount used: 20$ Age of first use: 12 Date of last use: 09/28/19 Methamphetamine Substance route: Smoking Frequency: 1-2 times per week Amount used: 100$ Age of first use: 9 Date of last use: 09/27/19 Admission Physical Exam S - Vital Signs Vital Signs: Vital Signs - 24 hr 09/29/19 11:28 Temperature 97.4 F L Pulse Rate 71 Respiratory 20 Rate Blood Pressure 103/60 - Physical General Appearance: Yes: Moderate Distress, Tremorous, Irritable, Sweating, Anxious HEENTM: Yes: Normal ENT Inspection, Normocephalic, BREANNE Respiratory: Yes: Within Normal Limits, Lungs Clear, Normal Breath Sounds Neck: Yes: Within Normal Limits, Supple, Trachea in good position Breast: Yes: Within Normal Limits Cardiology: Yes: Within Normal Limits, Regular Rhythm, Regular Rate, S1, S2 Abdominal: Yes: Normal Bowel Sounds, Non Tender, Flat, Soft Genitourinary: Yes: Within Normal Limits Back: Yes: Muscle Spasm Musculoskeletal: Yes: Back pain, Muscle Pain Extremities: Yes: Tremors 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: 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: 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 intact, Alert, Motor Strength 5/5 Integumentary: Yes: Dry, Track Gonzalez Lymphatic: Yes: Within Normal Limits - Diagnostic (1) Opioid dependence with withdrawal Current Visit: No Status: Acute (2) Alcohol dependence with uncomplicated withdrawal Current Visit: No Status: Acute (3) Cannabis dependence, uncomplicated Current Visit: No Status: Acute (4) Nicotine dependence Current Visit: No Status: Acute Qualifiers: Nicotine product type: cigarettes Substance use status: in withdrawal Qualified Code(s): F17.213 - Nicotine dependence, cigarettes, with withdrawal (5) Seizure Current Visit: No Status: Chronic (6) Methamphetamine abuse Current Visit: Yes Status: Acute (7) Weight loss Current Visit: Yes Status: Acute (8) Dehydration Current Visit: Yes Status: Acute (9) Poor dental hygiene Current Visit: Yes Status: Acute (10) IVDU (intravenous drug user) Current Visit: Yes Status: Acute Cleared for Admission S - Detox or Rehab [facility] Level of Care: Medically Managed (and ativan) Detox Regimen/Protocol: Methadone (and ativan regimen) Breathalyzer - Breathalyzer Breathalyzer: 0 Urine Drug Screen - Test Device Lot number: [id number] Expiration date: 05/23/21 - Control Is test valid?: Yes - Results Drug screen NEGATIVE: No Urine drug screen results: THC-Marijuana, MET-Methamphetamine, AMP-Amphetamines , FEN-Fentanyl, MOP-Opiates, MTD-Methadone, BZO-Benzodiazepines Inpatient Rehab Admission - Rehab Decision to Admit Inpatient rehab admission?: No
[2019-09-29] MEDS ORDERED: METHADONE HCL 10 MG TABLET (FOR DETOX USE ONLY) PO ONE (12:19)
[2019-09-29] MEDS ORDERED: MENTHOL/PHENOL 1 EACH UD MM PRN (12:19)
[2019-09-29] MEDS ORDERED: MAGNESIUM CITRATE 300 ML BOTTLE PO PRN (12:19)
[2019-09-29] MEDS ORDERED: BISMUTH SUBSALICYLATE 524 MG/30 ML UD PO PRN (12:19)
[2019-09-29] MEDS ORDERED: MAGNESIUM HYDROX 2400MG/30ML ORAL SUSPENSION 30 ML CUP PO PRN (12:19)
[2019-09-29] MEDS ORDERED: MAG HYDROX/AL HYDROX/SIMETH 30 ML UNIT-DOSE CUP PO PRN (12:19)
[2019-09-29] MEDS ORDERED: MELATONIN 5 MG TABLETS PO PRN (12:19)
[2019-09-29] MEDS ORDERED: ACETAMINOPHEN 325 MG TABLET (FP) PO PRN ×2 (12:19)
[2019-09-29] MEDS: NICOTINE 21 MG/24 HOURS TOPICAL PATCH TD SCH ×2 (13:41→13:54)
[2019-09-29] MEDS: LORazepam 1 MG TABLET PO PRN (13:49)
[2019-09-29] MEDS: LORazepam 2 MG TABLET PO SCH ×2 (17:58→23:55)
[2019-09-29] MEDS: THIAMINE HCL 100 MG TABLET (FP) PO SCH (22:55)
[2019-09-30] MEDS: LORazepam 2 MG TABLET PO SCH ×4 (06:11→23:51)
[2019-09-30] MEDS ORDERED: METHADONE HCL 10 MG TABLET (FOR DETOX USE ONLY) ONE (09:38)
[2019-09-30] MEDS ORDERED: METHADONE HCL 5 MG TABLET (FOR DETOX USE ONLY) ONE (09:38)
[2019-09-30] MEDS ORDERED: METHADONE (DETOX) 20 MG, METHADONE (DETOX) 5 MG PO ONE (10:00)
[2019-09-30] MEDS: NICOTINE 21 MG/24 HOURS TOPICAL PATCH TD SCH (10:48)
[2019-09-30] MEDS: PRENATAL VITAMINS W/ FOLIC ACID TABLET (FP) PO SCH (10:48)
[2019-09-30] MEDS: cloNIDine HCL 0.1 MG TABLET PO PRN (16:59)
[2019-09-30] MEDS: METHOCARBAMOL 500 MG TABLET PO PRN (17:00)
--- NOTE | 2019-09-30 17:03 | PN ---
S CIWA - CIWA Score Nausea/Vomitin-Mild Nausea/No Vomiting Muscle Tremors: 3 Anxiety: 3 Agitation: 3 Paroxysmal Sweats: 3 Orientation: 0-Oriented Tacttile Disturbances: 1-Very Mild Itch/Numbness Auditory Disturbances: 0-None Visual Disturbances: 0-None Headache: 0-None Present CIWA-Ar Total Score: 14 BHS COWS - Scale Resting Pulse: 0= [place] 80 or Below Sweatin= Chills/Flushing Restless Observation: 3= Extraneous Movement Pupil Size: 0= Normal to Room Light Bone or Joint Aches: 2= Severe Diffuse Aches Runny Nose/ Eye Tearin= Runny Nose/Eyes GI Upset > 30mins: 2= Nausea/Diarrhea Tremor Observation of Outstretched Hands: 2= Slight Tremor Visible Yawning Observation: 0= None Anxiety or Irritability: 2=Irritable/Anxious Goose Flesh Skin: 0=Smooth Skin COWS Score: 14 BHS Progress Note (SOAP) Subjective: Agitated, shouting loudly, angry, sweating, chills, whole body aches, has no energy. Patient seen placing himself on the floor intermittently and screaming for his medication. Patient stated he is throwing himself on the floor because he wants his medication and they are taking too long to give him his medication. Patient aware not to lay on the floor. 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 Patient has been doing this since yesterday as per staff, patient observed doing this twice today. Patient aware that he should lay in his bed and not on the floor. Will reorder admission labs in AM as patient refused blood draw.
[2019-09-30] MEDS: LORazepam 1 MG TABLET PO PRN (19:47)
[2019-09-30] MEDS: hydrOXYzine PAMOATE 25 MG CAPSULE (FP) PO PRN (19:48)
--- NOTE | 2019-09-30 19:49 | PN ---
BHS Progress Note Note: alert,oriented x 3 history of heavy opiate using,with severe withdrawal,on methadone and ativan regimen Vital Signs Temperature 97.7 F 09/30/19 18:40 Pulse Rate 66 09/30/19 18:40 Respiratory Rate 18 09/30/19 18:40 Blood Pressure 130/69 09/30/19 18:40 O2 Sat by Pulse Oximetry (%) continue methadone and ativan regimen ,fluid, close monitoring
[2019-09-30] MEDS: THIAMINE HCL 100 MG TABLET (FP) PO SCH (23:51)
[2019-10-01] MEDS: LORazepam 1 MG TABLET PO PRN ×2 (01:37→09:32)
[2019-10-01] MEDS: METHOCARBAMOL 500 MG TABLET PO PRN ×3 (01:37→22:09)
[2019-10-01] MEDS: LORazepam 1 MG TABLET PO SCH ×2 (06:54→11:02)
[2019-10-01] MEDS: PRENATAL VITAMINS W/ FOLIC ACID TABLET (FP) PO SCH (09:32)
[2019-10-01] MEDS: cloNIDine HCL 0.1 MG TABLET PO PRN ×2 (09:32→18:03)
[2019-10-01] MEDS: NICOTINE POLACRILEX 2 MG GUM BUC PRN ×2 (09:34→12:13)
[2019-10-01] MEDS ORDERED: METHADONE HCL 10 MG TABLET (FOR DETOX USE ONLY) PO ONE (10:00)
[2019-10-01] MEDS: IBUPROFEN 400 MG TABLET (FP) PO PRN ×2 (11:00→18:56)
[2019-10-01] MEDS: NICOTINE 21 MG/24 HOURS TOPICAL PATCH TD SCH (11:00)
[2019-10-01 11:05] LABS: BASO % 0.5 % (0-2.0); EOS % 0.5 % (0-4.5); HEMATOCRIT 37.6 % (35.4-49); HEMOGLOBIN 12.2 GM/dL (11.7-16.9); LYMPH % 14.7 % (8-40); MCH 26.2 pg (25.7-33.7); MCHC 32.5 g/dl (32.0-35.9); MEAN CELL VOLUME 80.7 fl (80-96); MEAN PLT VOLUME 8.3 fl (7.5-11.1); MONO % 7.8 % (3.8-10.2); NEUT % 76.5 % (42.8-82.8); PLATELET COUNT 282 K/MM3 (134-434); RBC 4.65 M/mm3 (4.00-5.60); RDW 18.4 % (11.9-15.9); WHITE BLOOD COUNT 9.2 K/mm3 (4.0-10.0)
--- NOTE | 2019-10-01 11:16 | PN ---
[facility] CIWA - CIWA Score Nausea/Vomitin-Mild Nausea/No Vomiting Muscle Tremors: 2 Anxiety: 3 Agitation: 3 Paroxysmal Sweats: No Perspiration Orientation: 0-Oriented Tacttile Disturbances: 1-Very Mild Itch/Numbness Auditory Disturbances: 0-None Visual Disturbances: 0-None Headache: 2-Mild CIWA-Ar Total Score: 12 BHS COWS - Scale Resting Pulse: 0= [place] 80 or Below Sweatin= No chills or Flushing Restless Observation: 1= Difficult to Sit Still Pupil Size: 1= Pupils >than Normal Bone or Joint Aches: 2= Severe Diffuse Aches Runny Nose/ Eye Tearin= Runny Nose/Eyes GI Upset > 30mins: 2= Nausea/Diarrhea Tremor Observation of Outstretched Hands: 2= Slight Tremor Visible Yawning Observation: 1= 1-2x During Session Anxiety or Irritability: 2=Irritable/Anxious Goose Flesh Skin: 0=Smooth Skin COWS Score: 13 S Progress Note (SOAP) Subjective: alert,irritable,anxious,interrupted sleep,tremor,pain in the body and back Objective: 10/01/19 11:14 Vital Signs Temperature 97.3 F L 10/01/19 11:09 Pulse Rate 76 10/01/19 11:09 Respiratory Rate 16 10/01/19 11:09 Blood Pressure 136/87 10/01/19 11:09 O2 Sat by Pulse Oximetry (%) 10/01/19 11:15 labs pending Assessment: 10/01/19 11:15 withdrawal symptom Plan: continue detox methadone and ativan regimen
[2019-10-01 11:25] LABS: ALBUMIN 3.1 g/dl (3.4-5.0); BILIRUBIN,TOTAL 0.5 mg/dL (0.2-1); BLOOD UREA NITROGEN 10.9 mg/dL (7-18); CREATININE 0.6 mg/dL (0.55-1.3); POTASSIUM 3.5 mmol/L (3.5-5.1); TOT PROT 7.1 g/dl (6.4-8.2)
--- NOTE | 2019-10-01 15:52 | PN ---
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
[2019-10-01] MEDS ORDERED: diazePAM 5 MG TABLET PO ONE (16:30)
[2019-10-01] MEDS: hydrOXYzine PAMOATE 25 MG CAPSULE (FP) PO PRN (18:03)
[2019-10-01] MEDS: diazePAM 5 MG TABLET PO PRN (18:56)
[2019-10-01] MEDS: NICOTINE POLACRILEX 4 MG GUM BUC PRN (22:09)
[2019-10-01] MEDS: diazePAM 5 MG TABLET PO SCH (22:09)
[2019-10-01] MEDS: THIAMINE HCL 100 MG TABLET (FP) PO SCH (22:09)
[2019-10-02] MEDS ORDERED: LORazepam 0.5 MG TABLET PO PRN
[2019-10-02] MEDS: diazePAM 5 MG TABLET PO PRN ×2 (00:49→09:05)
[2019-10-02] MEDS: IBUPROFEN 400 MG TABLET (FP) PO PRN ×2 (00:50→09:07)
[2019-10-02] MEDS: cloNIDine HCL 0.1 MG TABLET PO PRN (00:50)
[2019-10-02] MEDS ORDERED: LORazepam 0.5 MG TABLET PO SCH (05:00)
[2019-10-02] MEDS: diazePAM 5 MG TABLET PO SCH (05:55)
[2019-10-02] MEDS ORDERED: METHADONE HCL 5 MG TABLET (FOR DETOX USE ONLY) ONE (08:59)
[2019-10-02] MEDS ORDERED: METHADONE HCL 10 MG TABLET (FOR DETOX USE ONLY) ONE (08:59)
[2019-10-02] MEDS ORDERED: IBUPROFEN 400 MG TABLET (FP) PO PRN (09:02)
[2019-10-02] MEDS: METHOCARBAMOL 500 MG TABLET PO PRN (09:05)
[2019-10-02] MEDS: NICOTINE POLACRILEX 4 MG GUM BUC PRN (09:10)
[2019-10-02] MEDS: NICOTINE 21 MG/24 HOURS TOPICAL PATCH TD SCH (09:10)
[2019-10-02] MEDS: PRENATAL VITAMINS W/ FOLIC ACID TABLET (FP) PO SCH (09:10)
[2019-10-02 09:15] VITALS: BP 117/77; PULSE 93; TEMP 98.8
--- NOTE | 2019-10-02 09:58 | PN ---
[facility] CIWA - CIWA Score Nausea/Vomitin-Mild Nausea/No Vomiting Muscle Tremors: 1-None Visible, but [place] Anxiety: 2 Agitation: 2 Paroxysmal Sweats: No Perspiration Orientation: 0-Oriented Tacttile Disturbances: 1-Very Mild Itch/Numbness Auditory Disturbances: 0-None Visual Disturbances: 0-None Headache: 1-Very Mild CIWA-Ar Total Score: 8 BHS COWS - Scale Resting Pulse: 0= [place] 80 or Below Sweatin= No chills or Flushing Restless Observation: 1= Difficult to Sit Still Pupil Size: 0= Normal to Room Light Bone or Joint Aches: 1= Mild Discomfort Runny Nose/ Eye Tearin= Nasal Congestion GI Upset > 30mins: 1= Stomach Cramp Tremor Observation of Outstretched Hands: 1= Tremor [place], Not Seen Yawning Observation: 1= 1-2x During Session Anxiety or Irritability: 2=Irritable/Anxious Goose Flesh Skin: 0=Smooth Skin COWS Score: 8 [facility] Progress Note (SOAP) Subjective: alert,irritable,anxious,interrupted sleep,pain in the body and back,pain in the left buttock at the site of skin pop and pain Objective: 10/02/19 09:57 Vital Signs Temperature 98.8 F 10/02/19 09:14 Pulse Rate 93 H 10/02/19 09:14 Respiratory Rate 18 10/02/19 09:14 Blood Pressure 117/77 10/02/19 09:14 O2 Sat by Pulse Oximetry (%) Assessment: 10/02/19 09:58 withdrawal symptom r/o abscess left buttock Plan: continue methadone and valium regimen,keflex 500 mgs po q6 hrs for 7 days, motrin 800 mgs po q 8 hrs prn for pain
[2019-10-02] MEDS ORDERED: METHADONE (DETOX) 10 MG, METHADONE (DETOX) 5 MG PO ONE (10:00)
--- NOTE | 2019-10-02 10:08 | DS ---
[facility] Detox Discharge Summary Admission Date: 09/29/19 Discharge Date: 10/02/19 - History Present History: Alcohol Dependence, Cocaine Dependence, Opioid Dependence Additional Comments: patient did not want to complete treatment,high risk of relapsing explained, patient understood, all attempts to convince patient to stay with no avail patient signed release ama,advise to call 911 if not feeling well, keflex 500 mgs po 6 hrs for 7days ,sent to [place] [facility] Pertinent Past History: ivdu dehydration - Physical Exam Results Vital Signs: Vital Signs Temperature 98.8 F 10/02/19 09:14 Pulse Rate 93 H 10/02/19 09:14 Respiratory Rate 18 10/02/19 09:14 Blood Pressure 117/77 10/02/19 09:14 O2 Sat by Pulse Oximetry (%) Pertinent Admission Physical Exam Findings: withdrawal signs and symptom Vital Signs Temperature 98.8 F 10/02/19 09:14 Pulse Rate 93 H 10/02/19 09:14 Respiratory Rate 18 10/02/19 09:14 Blood Pressure 117/77 10/02/19 09:14 O2 Sat by Pulse Oximetry (%) Laboratory Last Values WBC 9.2 K/mm3 (4.0-10.0) 10/01/19 07:50 RBC 4.65 M/mm3 (4.00-5.60) 10/01/19 07:50 Hgb 12.2 GM/dL (11.7-16.9) 10/01/19 07:50 Hct 37.6 % (35.4-49) 10/01/19 07:50 MCV 80.7 fl (80-96) 10/01/19 07:50 MCH 26.2 pg (25.7-33.7) D 10/01/19 07:50 MCHC 32.5 g/dl (32.0-35.9) 10/01/19 07:50 RDW 18.4 % (11.9-15.9) H 10/01/19 07:50 Plt Count 282 K/MM3 (134-434) D 10/01/19 07:50 MPV 8.3 fl (7.5-11.1) 10/01/19 07:50 Absolute Neuts (auto) 7.1 K/mm3 (1.5-8.0) 10/01/19 07:50 Neutrophils % 76.5 % (42.8-82.8) D 10/01/19 07:50 Lymphocytes % 14.7 % (8-40) D 10/01/19 07:50 Monocytes % 7.8 % (3.8-10.2) 10/01/19 07:50 Eosinophils % 0.5 % (0-4.5) D 10/01/19 07:50 Basophils % 0.5 % (0-2.0) 10/01/19 07:50 Nucleated RBC % 0 % (0-0) 10/01/19 07:50 Sodium 137 mmol/L (136-145) 10/01/19 07:50 Potassium 3.5 mmol/L (3.5-5.1) 10/01/19 07:50 Chloride 102 mmol/L (98-107) 10/01/19 07:50 Carbon Dioxide 27 mmol/L (21-32) 10/01/19 07:50 Anion Gap 7 MMOL/L (8-16) L 10/01/19 07:50 BUN 10.9 mg/dL (7-18) 10/01/19 07:50 Creatinine 0.6 mg/dL (0.55-1.3) 10/01/19 07:50 Est GFR (CKD-EPI)AfAm 144.74 10/01/19 07:50 Est GFR (CKD-EPI)NonAf 124.89 10/01/19 07:50 Random Glucose 97 mg/dL (74-106) 10/01/19 07:50 Hemoglobin A1c % 5.7 % (4.2-6.3) 10/01/19 07:50 Calcium 9.0 mg/dL (8.5-10.1) 10/01/19 07:50 Total Bilirubin 0.5 mg/dL (0.2-1) 10/01/19 07:50 AST 9 U/L (15-37) L 10/01/19 07:50 ALT 18 U/L (13-61) 10/01/19 07:50 Alkaline Phosphatase 80 U/L (45-117) 10/01/19 07:50 Total Protein 7.1 g/dl (6.4-8.2) 10/01/19 07:50 Albumin 3.1 g/dl (3.4-5.0) L 10/01/19 07:50 RPR Titer Nonreactive (NONREACTIVE) 10/01/19 07:50 - Treatment Patient has Accepted a Rehab Referral to: declined - Medication Discharge Medications: Ambulatory Orders Cephalexin Monohydrate [Keflex -] 500 mg PO Q6HPO #30 capsule 10/02/19 - Diagnosis (1) Opioid dependence with withdrawal Current Visit: No Status: Acute (2) Alcohol dependence with uncomplicated withdrawal Current Visit: No Status: Acute (3) Cannabis dependence, uncomplicated Current Visit: No Status: Acute (4) Nicotine dependence Current Visit: No Status: Acute Qualifiers: Nicotine product type: cigarettes Substance use status: in withdrawal Qualified Code(s): F17.213 - Nicotine dependence, cigarettes, with withdrawal (5) Seizure Current Visit: No Status: Chronic (6) Methamphetamine abuse Current Visit: Yes Status: Acute (7) Weight loss Current Visit: Yes Status: Acute (8) Dehydration Current Visit: Yes Status: Acute (9) Poor dental hygiene Current Visit: Yes Status: Acute (10) IVDU (intravenous drug user) Current Visit: Yes Status: Acute - AMA Did Patient Leave Against Medical Advice: Yes
[2019-10-02] MEDS ORDERED: CEPHALEXIN MONOHYDRATE 500 MG CAPSULE (UD) PO SCH (12:00)
[2019-10-03] MEDS ORDERED: LORazepam 0.5 MG TABLET PO ONE (05:00)
[2019-10-03] MEDS ORDERED: diazePAM 5 MG TABLET PO SCH (06:00)
[2019-10-03] MEDS ORDERED: METHADONE HCL 10 MG TABLET (FOR DETOX USE ONLY) PO ONE (10:00)
[2019-10-04] MEDS ORDERED: diazePAM 5 MG TABLET PO ONE (06:00)
[2019-10-04] MEDS ORDERED: METHADONE HCL 5 MG TABLET (FOR DETOX USE ONLY) PO ONE (06:00)
== END 2019-10-02 10:05 | disposition left against medical advice (07) | DRG 770 ==
LOC: YASAS 11:07 → Y6N 12:41
PROVIDERS: ADMIT Allergy & Immunology; ATTEND Allergy & Immunology
PROC: HZ2ZZZZ Detoxification Services for Substance Abuse Treatment (ICD-10-PCS; principal; 2019-09-29)
DX: F10.230 Alcohol dependence with withdrawal, uncomplicated (principal); F11.23 Opioid dependence with withdrawal; F14.20 Cocaine dependence, uncomplicated; F12.20 Cannabis dependence, uncomplicated; F17.213 Nicotine dependence, cigarettes, with withdrawal; E86.0 Dehydration; R63.4 Abnormal weight loss; Z68.21 Body mass index [BMI] 21.0-21.9, adult; Z86.69 Personal history of other diseases of the nervous system and sense organs; Z91.89 Other specified personal risk factors, not elsewhere classified; Z59.0 Homelessness
CPT/HCPCS: 36415; 80053; 83036; 85025; 86593; J0735

== ENCOUNTER 2020-07-03 14:38 | Inpatient (IN) | payer OTHER ==
--- NOTE | 2020-07-03 15:00 | BHS.RME ---
Substance Use & Tx History - Substance Use History Alcohol Substance amount: 4 pints vodka + beers Frequency of use: Daily Substance route: Oral Date of Last Use: 07/02/20 (started age 9) Nicotine Substance amount: 1 pack Frequency of use: Daily Substance route: Smoking Date of Last Use: 07/03/20 (started age 15) Physical/Psych/Mental Status - Behavior General Behavior: Increased activity (restlessness, agitation) Eye Contact: Normal - Cooperativeness Cooperativeness: Cooperative - Thinking Thought Processes: Tight, Logical, Goal Directed - Physical Health Problems Is patient presently having any pain?: No Does patient presently have any injuries (include location): No Does patient currently have a fever: No Is patient : No CIWA Nausea/Vomitin Muscle Tremors: 3 Anxiety: 3 Agitation: 4-Moderately Restless Paroxysmal Sweats: 5 Orientation: 1-Uncertain about Date Tacttile Disturbances: 1-Very Mild Itch/Numbness Auditory Disturbances: 3-Moderate Harsh/Frighten Visual Disturbances: 1-Very Mild Sensitivity Headache: 2-Mild CIWA-Ar Total Score: 26
--- NOTE | 2020-07-03 16:01 | HP ---
CIWA Score Nausea/Vomitin Muscle Tremors: 3 Anxiety: 3 Agitation: 4-Moderately Restless Paroxysmal Sweats: 5 Orientation: 1-Uncertain about Date Tacttile Disturbances: 1-Very Mild Itch/Numbness Auditory Disturbances: 3-Moderate Harsh/Frighten Visual Disturbances: 1-Very Mild Sensitivity Headache: 2-Mild CIWA-Ar Total Score: 26 - Admission Criteria OASAS Guidelines: Admission for Medically Managed Detox: Requires at least one of the followin. CIWA greater than 12 2. Seizures within the past 24 hours 3. Delirium tremens within the past 24 hours 4. Hallucinations within the past 24 hours 5. Acute intervention needed for co occurring medical disorder 6. Acute intervention needed for co occurring psychiatric disorder 7. Severe withdrawal that cannot be handled at a lower level of care (continued vomiting, continued diarrhea, abnormal vital signs) requiring intravenous medication and/or fluids 8. Admitting History and Physical - Admission Chief Complaint: Mr. Gonzalez is a 44 yo who presents to [facility] stating he is here to "stop using drugs and alcohol". History of Present Illness: Mr. Gonzalez is a 44 yo who presents to [facility] stating he is here to "stop using drugs and alcohol". 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 Nicotine Substance amount: 1 pack Frequency of use: Daily Substance route: Smoking Date of Last Use: 07/03/20 (started age 15) Methamphetamine, amphetamine, benzos: denies use Methadone 110 mg, medicated today per pt, location: [address] [place] [address] History Source: Patient Limitations to Obtaining History: No Limitations - Smoking History Smoking history: Unknown if ever smoked Have you smoked in the past 12 months: Yes Aproximately how many cigarettes per day: 40 - Alcohol/Substance Use Hx Alcohol Use: Yes History of Substance Use: reports: Heroin, Marijuana - Social History Occupation: unemploued History of Recent Travel: No Admission [facility] Allergies/Adverse Reactions: Allergies Allergy/AdvReac Type Severity Reaction Status Date / Time Pork/Porcine Containing Allergy Verified 09/29/19 11:28 Products Exam Limitations: No Limitations - Ebola screening Have you traveled outside of the country in the last 21 days: No Have you been sick,other than usual withdrawal symptoms: No Do you have a fever: No - Review of Systems Constitutional: Unintentional Wgt. Loss (20 lbs in 6 mos) EENT: reports: No Symptoms Reported Respiratory: reports: Cough (smokers cough per pt) Cardiac: reports: No Symptoms Reported GI: reports: Diarrhea, Nausea : reports: No Symptoms Reported Musculoskeletal: reports: Back Pain Integumentary: reports: No Symptoms Reported Neuro: reports: No Symptoms reported Endocrine: reports: No Symptoms Reported Hematology: reports: No Symptoms Reported Psychiatric: reports: Anxious Patient History - Patient Medical History Hx Anemia: No Hx Asthma: No Hx Chronic Obstructive Pulmonary Disease (COPD): No Hx Cancer: No Hx Cardiac Disorders: No Hx Congestive Heart Failure: No Hx Hypertension: No Hx Hypercholesterolemia: No Hx Pacemaker: No HX Cerebrovascular Accident: No Hx Seizures: No Hx Dementia: No Hx Diabetes: No Hx Gastrointestinal Disorders: No Hx Liver Disease: No Hx Genitourinary Disorders: No Hx Sexually Transmitted Disorders: No Hx Renal Disease (ESRD): No Hx Thyroid Disease: No Hx Human Immunodeficiency Virus (HIV): No (last 09/11 negative) Hx Hepatitis C: No Hx Depression: No Hx Suicide Attempt: No Hx Bipolar Disorder: No Hx Schizophrenia: No - Patient Surgical History Past Surgical History: No Hx Neurologic Surgery: No Hx Cataract Extraction: No Hx Cardiac Surgery: No Hx Lung Surgery: No Hx Breast Surgery: No Hx Breast Biopsy: No Hx Abdominal Surgery: No Hx Appendectomy: No Hx Cholecystectomy: No Hx Genitourinary Surgery: No Hx Section: No Hx Orthopedic Surgery: No Anesthesia Reaction: No - PPD History Date: 12/28/18 Results: 0 mm - Smoking Cessation Smoking history: Unknown if ever smoked Have you smoked in the past 12 months: Yes Aproximately how many cigarettes per day: 20 Cigars Per Day: 0 Hx Chewing Tobacco Use: No Initiated information on smoking cessation: Yes 'Breaking Loose' booklet given: 07/03/20 Admission Physical Exam BHS - Physical General Appearance: Yes: No Apparent Distress, Nourished, Thin, Tremorous HEENTM: Yes: EOMI, Hearing grossly Normal, Normocephalic, Normal Voice Respiratory: Yes: Lungs Clear, No Respiratory Distress, No Accessory Muscle Use Neck: Yes: Within Normal Limits, Supple Breast: Yes: Breast Exam Deferred Cardiology: Yes: Regular Rhythm, Regular Rate Abdominal: Yes: Normal Bowel Sounds, Non Tender, Flat, Soft Genitourinary: Yes: Other (deferred) Back: Yes: Normal Inspection Musculoskeletal: Yes: Gait Steady Extremities: Yes: Normal Inspection, Non-Tender 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: Yes: Alert, Normal Response Integumentary: Yes: Normal Color, Dry, Warm - Diagnostic (1) Alcohol dependence with uncomplicated withdrawal Current Visit: Yes Status: Acute Comment: 1. Admit detox 2. Librium, will check LFTs, were normal last admission (2) Homeless Current Visit: No Status: Acute Comment: 1. Counselor to meet with pt for aftercare (3) Nicotine dependence Current Visit: No Status: Acute Qualifiers: Nicotine product type: cigarettes Substance use status: uncomplicated Qualified Code(s): F17.210 - Nicotine dependence, cigarettes, uncomplicated Comment: 1. Nicotine patch 2/ Smoking cessation literature provided (4) Methadone maintenance therapy patient Current Visit: No Status: Chronic Comment: 1. will need to verify with program, closed now per pt, hold dose til tomorrow Cleared for Admission S - Detox or Rehab [facility] Level of Care: Medically Managed Detox Regimen/Protocol: Librium Breathalyzer - Breathalyzer Breathalyzer: 0 Urine Drug Screen - Test Device Lot number: [id number] Expiration date: 05/23/21 - Control Is test valid?: Yes - Results Drug screen NEGATIVE: No Urine drug screen results: THC-Marijuana, MET-Methamphetamine, AMP-Amphetamines, FEN-Fentanyl, MOP-Opiates, MTD-Methadone, BZO-Benzodiazepines Inpatient Rehab Admission - Rehab Decision to Admit Inpatient rehab admission?: No
[2020-07-03] MEDS ORDERED: MENTHOL/PHENOL 1 EACH UD MM PRN (16:03)
[2020-07-03] MEDS ORDERED: ONDANSETRON *ODT* 4 MG TABLET SL PRN (16:03)
[2020-07-03] MEDS ORDERED: ACETAMINOPHEN 325 MG TABLET (FP) PO PRN ×2 (16:03)
[2020-07-03] MEDS ORDERED: MAGNESIUM CITRATE 300 ML BOTTLE PO PRN (16:03)
[2020-07-03] MEDS ORDERED: MAGNESIUM HYDROX 2400MG/30ML ORAL SUSPENSION 30 ML CUP PO PRN (16:03)
[2020-07-03] MEDS ORDERED: MAG HYDROX/AL HYDROX/SIMETH 30 ML UNIT-DOSE CUP PO PRN (16:03)
[2020-07-03] MEDS ORDERED: IBUPROFEN 400 MG TABLET (FP) PO PRN (16:03)
[2020-07-03] MEDS ORDERED: BISMUTH SUBSALICYLATE 524 MG/30 ML UD PO PRN (16:03)
[2020-07-03] MEDS ORDERED: METHOCARBAMOL 500 MG TABLET PO PRN (16:03)
[2020-07-03] MEDS ORDERED: NICOTINE POLACRILEX 2 MG GUM BUC PRN (16:03)
[2020-07-03 16:39] VITALS: BMI 20.2
[2020-07-03] MEDS: chlordiazePOXIDE HCL 25 MG CAPSULE PO SCH ×2 (17:26→22:57)
[2020-07-03] MEDS: hydrOXYzine PAMOATE 25 MG CAPSULE (FP) PO SCH ×2 (17:26→22:57)
[2020-07-03] MEDS: NICOTINE 21 MG/24 HOURS TOPICAL PATCH TD SCH (18:28)
[2020-07-03] MEDS: MELATONIN 5 MG TABLETS PO SCH (22:57)
[2020-07-03] MEDS: THIAMINE HCL 100 MG TABLET (FP) PO SCH (22:58)
[2020-07-04] MEDS: chlordiazePOXIDE HCL 25 MG CAPSULE PO SCH ×4 (05:23→22:01)
[2020-07-04] MEDS: hydrOXYzine PAMOATE 25 MG CAPSULE (FP) PO SCH ×5 (05:24→20:59)
[2020-07-04] MEDS ORDERED: METHADONE HCL 10 MG TABLET PO SCH (08:30)
[2020-07-04] MEDS ORDERED: METHADONE HCL 10 MG TABLET ONE (08:55)
[2020-07-04] MEDS ORDERED: METHADONE HCL 40 MG DISPERSABLE TABLET ONE (08:55)
--- NOTE | 2020-07-04 09:03 | EKG ---
Test Reason : Blood Pressure : / mmHG Vent. Rate : 071 BPM Atrial Rate : 071 BPM P-R Int : 130 ms QRS Dur : 098 ms QT Int : 416 ms P-R-T Axes : 059 045 060 degrees QTc Int : 452 ms NORMAL SINUS RHYTHM NORMAL ECG WHEN COMPARED WITH ECG OF 10-MAY-2019 11:06, NO SIGNIFICANT CHANGE WAS FOUND Confirmed by ANTONIO KISER MD ([id number]) on 07/04/2020 9:03:06 AM Referred By: Confirmed By:ANTONIO KISER MD
[2020-07-04] MEDS ORDERED: MASKS NR ONE (09:06)
[2020-07-04] MEDS: METHADONE 80 MG, METHADONE 30 MG PO SCH (09:12)
--- NOTE | 2020-07-04 09:42 | PN ---
[facility] CIWA - CIWA Score Nausea/Vomitin-Mild Nausea/No Vomiting Muscle Tremors: None Anxiety: 3 Agitation: 4-Moderately Restless Paroxysmal Sweats: 1-Minimal Palms Moist Orientation: 1-Uncertain about Date Tacttile Disturbances: 0-None Auditory Disturbances: 2-Mild Harshness/Frighten Visual Disturbances: 2-Mild Sensitivity Headache: 0-None Present CIWA-Ar Total Score: 14 S Progress Note (SOAP) Subjective: Pt very irritable, wants methadone maintenance dose, mulitple withdrawal complaints Objective: 07/04/20 09:37 PE Gnl: WDWN, initially in bed, then pacing and yelling in hallway MS: irritable, anxious Motor: moves limbs well Coord: nl, tremor with outstetched arms Home Medication List Medication Instructions Recorded Confirmed Type NK [No Known Home Medication] 07/03/20 07/03/20 History Active Medications Generic Name Dose Route Start Last Admin Trade Name Freq PRN Reason Stop Dose Admin Acetaminophen 650 mg 07/03/20 16:03 Tylenol - PO Q6H PRN PAIN LEVEL 4 - 6 Acetaminophen 650 mg 07/03/20 16:03 Tylenol - PO Q6H PRN FEVER Al Hydroxide/Mg Hydroxide 30 ml 07/03/20 16:03 Mylanta Oral Suspension - PO Q6H PRN DYSPEPSIA Bismuth Subsalicylate 524 mg 07/03/20 16:03 Pepto-Bismol - PO Q1H PRN DIARRHEA Chlordiazepoxide HCl 50 mg 07/03/20 17:00 07/04/20 05:23 Librium - PO 07/04/20 23:01 50 mg [id number] BASIM Administration Chlordiazepoxide HCl 25 mg 07/05/20 05:00 Librium - PO 07/05/20 23:01 [id number] BASIM Chlordiazepoxide HCl 25 mg 07/03/20 16:03 Librium - PO 07/05/20 23:59 Q4H PRN WITHDRAWAL(CONT SUBST) Chlordiazepoxide HCl 10 mg 07/06/20 05:00 Librium - PO 07/06/20 23:01 [id number] BASIM Chlordiazepoxide HCl 10 mg 07/07/20 05:00 Librium - PO 07/07/20 17:01 Q12H BASIM Chlordiazepoxide HCl 10 mg 07/06/20 00:00 Librium - PO 07/07/20 00:00 Q4H PRN WITHDRAWAL(CONT SUBST) Chlordiazepoxide HCl 10 mg 07/08/20 05:00 Librium - PO 07/08/20 05:01 ONCE@0500 ONE Eucalyptus/Menthol/Phenol/Sorbitol 1 each 07/03/20 16:03 Cepastat Lozenge - MM 07/09/20 16:03 Q4H PRN SORE THROAT Hydroxyzine Pamoate 25 mg 07/03/20 18:00 07/04/20 05:24 Vistaril - PO 07/09/20 16:03 Not Given Q4HWA [facility] Ibuprofen 400 mg 07/03/20 16:03 Motrin - PO Q6H PRN PAIN LEVEL 1 - 3 Magnesium Citrate 300 ml 07/03/20 16:03 Citroma - PO Q48H PRN CONSTIPATION Magnesium Hydroxide 30 ml 07/03/20 16:03 Milk Of Magnesia - PO PRN PRN CONSTIPATION Melatonin 5 mg 07/03/20 22:00 07/03/20 22:57 Melatonin PO 5 mg HS [facility] Administration Methadone HCl 80 mg/ Methadone 110 mg 07/04/20 08:45 07/04/20 09:12 HCl 30 mg PO 110 mg DAILY@0600 [facility] Administration Methocarbamol 500 mg 07/03/20 16:03 07/03/20 22:57 Robaxin - PO 07/09/20 16:03 500 mg Q6H PRN Administration MUSCLE SPASMS Nicotine 21 mg 07/03/20 17:00 07/03/20 18:28 Nicoderm Patch - TD Not Given DAILY [facility] Nicotine Polacrilex 2 mg 07/03/20 16:03 Nicorette Gum - BUC Q2H PRN NICOTINE REPLACEMENT RX Ondansetron HCl 4 mg 07/03/20 16:03 Zofran Odt - SL Q8H PRN Nausea/Vomiting Multivit/Folic Acid/Iron 1 tab 07/04/20 10:00 Vitamins (Sjr) - PO DAILY [facility] Thiamine HCl 100 mg 07/03/20 22:00 07/03/20 22:58 Vitamin B1 - PO 100 mg HS BASIM Administration 07/04/20 09:38 Vital Signs Temperature 98.2 F 07/04/20 05:07 Pulse Rate 75 07/04/20 05:07 Respiratory Rate 18 07/04/20 05:07 Blood Pressure 105/58 L 07/04/20 05:07 O2 Sat by Pulse Oximetry (%) 97 07/04/20 05:07 Assessment: 07/04/20 09:34 Mr. Gonzalez is a 44 yo who presented to [facility] yesterday stating he is here to "stop using drugs and alcohol". He was last here September 29 to October 02, 2019, left AMA 07/04/20 09:42 1. Alcohol withdrawal uncomplicated 2. Methdone maintenance 3. Nicotine dependence 4. Homeless Plan: 1. Librium detox protocol 2. Methadone ordered, pt medicated 3. Nicotine patch 4. Counselor to meet with pt for aftercare plans 5. Pt refused lab draw earlier, now agrees to have labs after he showers
[2020-07-04] MEDS: PRENATAL VITAMINS W/ FOLIC ACID TABLET (FP) PO SCH (10:36)
[2020-07-04] MEDS: NICOTINE 21 MG/24 HOURS TOPICAL PATCH TD SCH (10:36)
[2020-07-04] MEDS: chlordiazePOXIDE HCL 25 MG CAPSULE PO PRN (14:17)
[2020-07-04 14:54] LABS: BASO % 0.4 % (0-2.0); EOS % 0.7 % (0-4.5); HEMATOCRIT 43.3 % (35.4-49); HEMOGLOBIN 14.3 GM/dL (11.7-16.9); LYMPH % 8.8 % (8-40); MCH 28.6 pg (25.7-33.7); MEAN CELL VOLUME 86.6 fl (80-96); MEAN PLT VOLUME 10.3 fl (7.5-11.1); MONO % 5.4 % (3.8-10.2); NEUT % 84.7 % (42.8-82.8); PLATELET COUNT 159 K/MM3 (134-434); RDW 16.7 % (11.9-15.9); WHITE BLOOD COUNT 12.9 K/mm3 (4.0-10.0)
[2020-07-04 15:09] LABS: ALBUMIN 3.8 g/dl (3.4-5.0); BILIRUBIN,TOTAL 0.5 mg/dL (0.2-1); BLOOD UREA NITROGEN 11.4 mg/dL (7-18); CALCIUM 8.8 mg/dL (8.5-10.1); CREATININE 0.9 mg/dL (0.55-1.3); POTASSIUM 3.6 mmol/L (3.5-5.1); TOT PROT 7.1 g/dl (6.4-8.2)
[2020-07-04] MEDS: NICOTINE POLACRILEX 2 MG GUM BUC PRN ×2 (16:53→20:57)
[2020-07-04] MEDS: THIAMINE HCL 100 MG TABLET (FP) PO SCH (20:59)
[2020-07-04] MEDS: MELATONIN 5 MG TABLETS PO SCH (21:04)
[2020-07-05] MEDS ORDERED: METHADONE HCL 10 MG TABLET ONE (04:03)
[2020-07-05] MEDS ORDERED: METHADONE HCL 40 MG DISPERSABLE TABLET ONE (04:04)
[2020-07-05] MEDS: hydrOXYzine PAMOATE 25 MG CAPSULE (FP) PO SCH ×4 (05:03→20:16)
[2020-07-05] MEDS: METHADONE 80 MG, METHADONE 30 MG PO SCH (05:03)
[2020-07-05] MEDS: chlordiazePOXIDE HCL 25 MG CAPSULE PO PRN ×3 (05:03→13:59)
[2020-07-05] MEDS: NICOTINE POLACRILEX 2 MG GUM BUC PRN ×3 (05:07→12:51)
[2020-07-05] MEDS: chlordiazePOXIDE HCL 25 MG CAPSULE PO SCH ×3 (05:15→20:16)
[2020-07-05] MEDS: NICOTINE 21 MG/24 HOURS TOPICAL PATCH TD SCH (09:16)
[2020-07-05] MEDS: PRENATAL VITAMINS W/ FOLIC ACID TABLET (FP) PO SCH (09:57)
--- NOTE | 2020-07-05 12:11 | PN ---
S CIWA - CIWA Score Nausea/Vomitin-No Nausea/No Vomiting Muscle Tremors: 2 Anxiety: 3 Agitation: 1-Slight > Activity Paroxysmal Sweats: 3 Orientation: 0-Oriented Tacttile Disturbances: 0-None Auditory Disturbances: 0-None Visual Disturbances: 0-None Headache: 1-Very Mild CIWA-Ar Total Score: 10 BHS Progress Note (SOAP) Subjective: c/o anxiety, headache, sweats, and shakes. Objective: 07/05/20 12:06 Vital Signs - 24 hr 07/04/20 07/04/20 07/04/20 12:25 16:44 20:31 Temperature 97.3 F L 98.4 F 97.8 F Pulse Rate 78 75 88 Respiratory 18 18 18 Rate Blood Pressure 114/72 124/86 125/74 O2 Sat by Pulse 95 98 Oximetry (%) 07/04/20 07/05/20 07/05/20 22:00 04:59 08:24 Temperature 97.8 F 97.8 F 97.5 F L Pulse Rate 88 87 72 Respiratory 18 16 18 Rate Blood Pressure 125/74 116/66 122/73 O2 Sat by Pulse 98 Oximetry (%) Laboratory Last Values WBC 12.9 K/mm3 (4.0-10.0) H 07/04/20 10:20 RBC 5.00 M/mm3 (4.00-5.60) 07/04/20 10:20 Hgb 14.3 GM/dL (11.7-16.9) 07/04/20 10:20 Hct 43.3 % (35.4-49) D 07/04/20 10:20 MCV 86.6 fl (80-96) 07/04/20 10:20 MCH 28.6 pg (25.7-33.7) 07/04/20 10:20 MCHC 33.0 g/dl (32.0-35.9) 07/04/20 10:20 RDW 16.7 % (11.9-15.9) H 07/04/20 10:20 Plt Count 159 K/MM3 (134-434) D 07/04/20 10:20 MPV 10.3 fl (7.5-11.1) D 07/04/20 10:20 Absolute Neuts (auto) 10.9 K/mm3 (1.5-8.0) H 07/04/20 10:20 Neutrophils % 84.7 % (42.8-82.8) H 07/04/20 10:20 Lymphocytes % 8.8 % (8-40) D 07/04/20 10:20 Monocytes % 5.4 % (3.8-10.2) 07/04/20 10:20 Eosinophils % 0.7 % (0-4.5) 07/04/20 10:20 Basophils % 0.4 % (0-2.0) 07/04/20 10:20 Nucleated RBC % 0 % (0-0) 07/04/20 10:20 Sodium 140 mmol/L (136-145) 07/04/20 10:20 Potassium 3.6 mmol/L (3.5-5.1) 07/04/20 10:20 Chloride 104 mmol/L (98-107) 07/04/20 10:20 Carbon Dioxide 30 mmol/L (21-32) 07/04/20 10:20 Anion Gap 6 MMOL/L (8-16) L 07/04/20 10:20 BUN 11.4 mg/dL (7-18) 07/04/20 10:20 Creatinine 0.9 mg/dL (0.55-1.3) 07/04/20 10:20 Est GFR (CKD-EPI)AfAm 121.67 07/04/20 10:20 Est GFR (CKD-EPI)NonAf 104.98 07/04/20 10:20 Random Glucose 93 mg/dL (74-106) 07/04/20 10:20 Calcium 8.8 mg/dL (8.5-10.1) 07/04/20 10:20 Total Bilirubin 0.5 mg/dL (0.2-1) 07/04/20 10:20 AST 17 U/L (15-37) 07/04/20 10:20 ALT 33 U/L (13-61) 07/04/20 10:20 Alkaline Phosphatase 73 U/L (45-117) 07/04/20 10:20 Total Protein 7.1 g/dl (6.4-8.2) 07/04/20 10:20 Albumin 3.8 g/dl (3.4-5.0) 07/04/20 10:20 Syphilis Serology Non-reactive (NONREACTIVE) 07/04/20 10:20 COVID-19 (LUIS M) Not detected (Not Detected) 07/03/20 16:55 Labs noted. Assessment: 07/05/20 12:12 AOX3, in no acute respiratory distress. Full ROM, ambulating in the unit. Withdrawal symptoms. Plan: continue detox.
[2020-07-05] MEDS ORDERED: LORazepam 2 MG/ML SDV VIAL IM ONE (17:55)
--- NOTE | 2020-07-05 17:59 | PN ---
[facility] Progress Note Note: responded to rapid response patient is on the floor in front of his room found to be shaking all extremity lasted 30 second no head injury pupil constricted both support patient airway and neck ativan 2 mgs im no postictal bp 113/70,p77,r18,t96,6 bgm 103 impression syncope r/o seizure alcohol dependence with withdrawal symptom mmtp methadone maintenance 110 mgs/day treatment to er at [facility] by [facility],endorsed to Dr Sigrid Sawyer
[2020-07-06] MEDS ORDERED: chlordiazePOXIDE HCL 10 MG CAPSULE PO PRN
[2020-07-06] MEDS: MELATONIN 5 MG TABLETS PO SCH (00:38)
[2020-07-06] MEDS: hydrOXYzine PAMOATE 25 MG CAPSULE (FP) PO SCH ×5 (00:38→18:52)
[2020-07-06] MEDS: THIAMINE HCL 100 MG TABLET (FP) PO SCH (00:39)
[2020-07-06] MEDS: chlordiazePOXIDE HCL 25 MG CAPSULE PO SCH (00:39)
--- NOTE | 2020-07-06 01:36 | PN ---
[facility] Progress Note Note: Patient came back from emergency room post seizure. As per Emergency room, his labs. was within normal, twelve-lead EKG was Normal sinus rhythm, rate 74. Normal axis and intervals. No ST elevations or T wave inversion. Patient was cleared to continue with detoxification. Vital Signs Temperature 97.0 F L 07/05/20 16:40 Pulse Rate 79 07/05/20 16:40 Respiratory Rate 18 07/05/20 16:40 Blood Pressure 107/72 07/05/20 16:40 O2 Sat by Pulse Oximetry (%) 97 07/05/20 12:31 Laboratory Last Values WBC 12.9 K/mm3 (4.0-10.0) H 07/04/20 10:20 RBC 5.00 M/mm3 (4.00-5.60) 07/04/20 10:20 Hgb 14.3 GM/dL (11.7-16.9) 07/04/20 10:20 Hct 43.3 % (35.4-49) D 07/04/20 10:20 MCV 86.6 fl (80-96) 07/04/20 10:20 MCH 28.6 pg (25.7-33.7) 07/04/20 10:20 MCHC 33.0 g/dl (32.0-35.9) 07/04/20 10:20 RDW 16.7 % (11.9-15.9) H 07/04/20 10:20 Plt Count 159 K/MM3 (134-434) D 07/04/20 10:20 MPV 10.3 fl (7.5-11.1) D 07/04/20 10:20 Absolute Neuts (auto) 10.9 K/mm3 (1.5-8.0) H 07/04/20 10:20 Neutrophils % 84.7 % (42.8-82.8) H 07/04/20 10:20 Lymphocytes % 8.8 % (8-40) D 07/04/20 10:20 Monocytes % 5.4 % (3.8-10.2) 07/04/20 10:20 Eosinophils % 0.7 % (0-4.5) 07/04/20 10:20 Basophils % 0.4 % (0-2.0) 07/04/20 10:20 Nucleated RBC % 0 % (0-0) 07/04/20 10:20 Sodium 140 mmol/L (136-145) 07/04/20 10:20 Potassium 3.6 mmol/L (3.5-5.1) 07/04/20 10:20 Chloride 104 mmol/L (98-107) 07/04/20 10:20 Carbon Dioxide 30 mmol/L (21-32) 07/04/20 10:20 Anion Gap 6 MMOL/L (8-16) L 07/04/20 10:20 BUN 11.4 mg/dL (7-18) 07/04/20 10:20 Creatinine 0.9 mg/dL (0.55-1.3) 07/04/20 10:20 Est GFR (CKD-EPI)AfAm 121.67 07/04/20 10:20 Est GFR (CKD-EPI)NonAf 104.98 07/04/20 10:20 Random Glucose 93 mg/dL (74-106) 07/04/20 10:20 Calcium 8.8 mg/dL (8.5-10.1) 07/04/20 10:20 Total Bilirubin 0.5 mg/dL (0.2-1) 07/04/20 10:20 AST 17 U/L (15-37) 07/04/20 10:20 ALT 33 U/L (13-61) 07/04/20 10:20 Alkaline Phosphatase 73 U/L (45-117) 07/04/20 10:20 Total Protein 7.1 g/dl (6.4-8.2) 07/04/20 10:20 Albumin 3.8 g/dl (3.4-5.0) 07/04/20 10:20 Syphilis Serology Non-reactive (NONREACTIVE) 07/04/20 10:20 COVID-19 (LUIS M) Not detected (Not Detected) 07/03/20 16:55 Action: Continue detox Maintain seizure precaution
[2020-07-06] MEDS ORDERED: METHADONE HCL 40 MG DISPERSABLE TABLET ONE (04:17)
[2020-07-06] MEDS ORDERED: METHADONE HCL 10 MG TABLET ONE (04:17)
[2020-07-06] MEDS: METHADONE 80 MG, METHADONE 30 MG PO SCH (05:46)
[2020-07-06] MEDS: chlordiazePOXIDE HCL 10 MG CAPSULE PO SCH ×2 (05:47→10:06)
[2020-07-06] MEDS: NICOTINE POLACRILEX 2 MG GUM BUC PRN ×2 (09:30→14:02)
[2020-07-06] MEDS: NICOTINE 21 MG/24 HOURS TOPICAL PATCH TD SCH (10:05)
[2020-07-06] MEDS: PRENATAL VITAMINS W/ FOLIC ACID TABLET (FP) PO SCH (10:06)
--- NOTE | 2020-07-06 12:27 | PN ---
[facility] CIWA - CIWA Score Nausea/Vomitin-No Nausea/No Vomiting Muscle Tremors: 1-None Visible, but [place] Anxiety: 3 Agitation: 1-Slight > Activity Paroxysmal Sweats: No Perspiration Orientation: 0-Oriented Tacttile Disturbances: 0-None Auditory Disturbances: 0-None Visual Disturbances: 1-Very Mild Sensitivity Headache: 1-Very Mild CIWA-Ar Total Score: 7 S Progress Note (SOAP) Subjective: 44 years old male was admitted on 07/03/20 for alcohol withdrawal sx management treating with librium detox regiment mr willard demands making a call at medication time encourage mr wait for medication time over mr willard states that he has withdrawal seizure and is going to have a seizure if no phone call now discuss librium regiment mr willard demands ativan 2 mg "to go to sleep" now due to no sleep x 1 week "they gave me yesterday" mr willard demands valium 10 mg discuss purpose of detox mr willard agrees on 5 mg valium mr willard agrees valium regimen for alcohol withdrawal that he is taking ativan at home for seizure "my gave it to me when I have seizure" mr willard received methadone 110mg today and discontinue librium begin valium regimen Objective: 07/06/20 12:33 Vital Signs - 24 hr 07/05/20 07/06/20 07/06/20 16:40 01:25 05:39 Temperature 97.0 F L 96.9 F L 97.1 F L Pulse Rate 79 66 78 Respiratory 18 18 18 Rate Blood Pressure 107/72 103/74 134/85 O2 Sat by Pulse 100 Oximetry (%) 07/06/20 08:29 Temperature 97.1 F L Pulse Rate 62 Respiratory 16 Rate Blood Pressure 110/81 O2 Sat by Pulse Oximetry (%) Laboratory Tests 07/03/20 07/04/20 07/04/20 16:55 10:20 10:20 WBC 12.9 H RBC 5.00 Hgb 14.3 Hct 43.3 D MCV 86.6 MCH 28.6 MCHC 33.0 RDW 16.7 H Plt Count 159 D MPV 10.3 D Absolute Neuts (auto) 10.9 H Neutrophils % 84.7 H Lymphocytes % 8.8 D Monocytes % 5.4 Eosinophils % 0.7 Basophils % 0.4 Nucleated RBC % 0 Sodium Potassium Chloride Carbon Dioxide Anion Gap BUN Creatinine Est GFR (CKD-EPI)AfAm Est GFR (CKD-EPI)NonAf Random Glucose Calcium Total Bilirubin AST ALT Alkaline Phosphatase Total Protein Albumin Syphilis Serology Non-reactive COVID-19 (LUIS M) Not detected 07/04/20 10:20 WBC RBC Hgb Hct MCV MCH MCHC RDW Plt Count MPV Absolute Neuts (auto) Neutrophils % Lymphocytes % Monocytes % Eosinophils % Basophils % Nucleated RBC % Sodium 140 Potassium 3.6 Chloride 104 Carbon Dioxide 30 Anion Gap 6 L BUN 11.4 Creatinine 0.9 Est GFR (CKD-EPI)AfAm 121.67 Est GFR (CKD-EPI)NonAf 104.98 Random Glucose 93 Calcium 8.8 Total Bilirubin 0.5 AST 17 ALT 33 Alkaline Phosphatase 73 Total Protein 7.1 Albumin 3.8 Syphilis Serology COVID-19 (LUIS M) lab noted Assessment: 07/06/20 12:33 alcohol withdrawal mr willard states that he does not have seizure and not taking antiseizure medication daily seizure from alcohol withdrawal "my wants me to be clean" 07/06/20 12:34 mr willard denies problem with anxiety but benzo for seizure Plan: valium regiment
[2020-07-06] MEDS: LIDOCAINE 5% TOPICAL PATCH TP SCH (12:55)
[2020-07-06] MEDS: diazePAM 5 MG TABLET PO SCH (14:01)
[2020-07-06] MEDS: diazePAM 5 MG TABLET PO PRN (20:00)
[2020-07-06] MEDS ORDERED: LIDOCAINE PATCH REMOVAL MC SCH (22:00)
[2020-07-07] MEDS: hydrOXYzine PAMOATE 25 MG CAPSULE (FP) PO SCH ×3 (00:09→09:35)
[2020-07-07] MEDS: THIAMINE HCL 100 MG TABLET (FP) PO SCH (00:09)
[2020-07-07] MEDS: MELATONIN 5 MG TABLETS PO SCH ×2 (00:09→00:25)
[2020-07-07] MEDS: diazePAM 5 MG TABLET PO SCH ×2 (00:09→00:26)
[2020-07-07] MEDS ORDERED: METHADONE HCL 10 MG TABLET ONE (04:40)
[2020-07-07] MEDS ORDERED: METHADONE HCL 40 MG DISPERSABLE TABLET ONE (04:40)
[2020-07-07] MEDS ORDERED: chlordiazePOXIDE HCL 10 MG CAPSULE PO SCH (05:00)
[2020-07-07] MEDS ORDERED: diazePAM 5 MG TABLET PO SCH (05:00)
[2020-07-07] MEDS: METHADONE 80 MG, METHADONE 30 MG PO SCH (05:06)
[2020-07-07] MEDS: NICOTINE POLACRILEX 2 MG GUM BUC PRN (07:19)
[2020-07-07] MEDS: diazePAM 5 MG TABLET PO PRN (07:58)
[2020-07-07] MEDS: LIDOCAINE 5% TOPICAL PATCH TP SCH (09:35)
[2020-07-07] MEDS: NICOTINE 21 MG/24 HOURS TOPICAL PATCH TD SCH (09:36)
[2020-07-07] MEDS: PRENATAL VITAMINS W/ FOLIC ACID TABLET (FP) PO SCH (09:36)
--- NOTE | 2020-07-07 10:41 | CONSULT ---
[facility] Psychiatric Consult - Data Date of interview: 07/07/20 Admission source: [facility] Identifying data: Revisit to [facility] and admission to [address] [place] [address] for this 44 y/o male self-referred for detoxification treatment. DEBRA issues : alcohol, opioid, nicotine. Patient is agitated. Refused to talk to this staff writer. Mr Gonzalez is yelling, screaming. Patient states that he is going to hang himself. Substance Abuse History: History of substance abuse, as follows : Alcohol. Substance amount: 4 pints vodka + beers. Frequency of use: Daily. Substance route: Oral. Date of Last Use: 07/02/20 (started age 9). NO seizures. Has had blackouts, 2 mos ago. 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 Nicotine. Substance amount: 1 pack. Frequency of use: Daily. Substance route: Smoking. Date of Last Use: 07/03/20 (started age 15). Methamphetamine, amphetamine, benzos: denies use. Methadone 110 mg, medicated today per pt, location: [address] [place] [address]. History Source: Patient. Limitations to Obtaining History: No Limitations. - Smoking History. Smoking history: Unknown if ever smoked. Have you smoked in the past 12 months: Yes. Approximately how many cigarettes per day: 40. History of multiple DEBRA treatment failures. - Alcohol/Substance Use. Hx Alcohol Use: Yes. History of Substance Use: reports: Heroin, Marijuana. - Social History. Occupation: unemployed. History of Recent Travel: No. Urine drug screen results: THC-Marijuana, MET-Methamphetamine, AMP-Amphetamines, FEN-Fentanyl, MOP-Opiates, MTD-Methadone, BZO-Benzodiazepines. Noted on admission (07/03/20). Medical History: History of seizures. Last episode TWO days ago. Psychiatric History: Patient refuses to talk to staff writer. See rn building Sharad De La Torre's note of 05/12/19 for history. Attached. Physical/Sexual Abuse/Trauma History: Not discussed : patient uncooperative. Additional Comment: Patient has threatened to slash his throat or hang self. Placed on 1:1 Constant Observation. Mental Status Exam - Mental Status Exam Alert and Oriented to: Time, Place, Person Cognitive Function: Grossly Intact Patient Appearance: Unkempt, Disheveled Mood: Angry, Hostile Affect: Mood Congruent Patient Behavior: Inappropriate, Uncooperative, Belligerent, Agitated Speech Pattern: Excessive Voice Loudness: Severely Loud Thought Process: Goal Oriented Suicidal Ideation: Current, Plan (to self-mutilate or hang self if not given lorazepam) Insight/Judgement: Poor Gait/Station: Normal Psychiatric Findings - Problem List ([place] 1, 2,3) (1) Suicidal behavior Status: Acute Qualifiers: Attempted self-injury: without attempted self-injury Qualified Code(s): R45.89 - Other symptoms and signs involving emotional state (2) Alcohol dependence with uncomplicated withdrawal Status: Acute Comment: 1. Admit detox 2. Librium, will check LFTs, were normal last admission (3) Opioid dependence on agonist therapy Status: Chronic (4) Nicotine dependence Status: Acute Qualifiers: Nicotine product type: cigarettes Substance use status: in withdrawal Qualified Code(s): F17.213 - Nicotine dependence, cigarettes, with withdrawal Comment: 1. Nicotine patch 2/ Smoking cessation literature provided (5) History of bipolar disorder Status: Chronic (6) Cannabis dependence, uncomplicated Status: Acute (7) Non-compliance Status: Chronic Comment: Non-compliance with [facility] care. - Initial Treatment Plan Initial Treatment Plan: Case discussed, via telephone, with rn building Ms AvalosTherese ([phone]) at [facility]. Mr Gonzalez is escalating (disruptive on unit, belligerent toward security personnel implementing Constant Observation until arrival of EMS/[place] Police, verbally abusive to staff, invested in suicidal threats). This patient cannot be managed in a DEBRA treatment center (detox). Mr Gonzalez needs higher level psychiatric care. Patient is transferred, via EMS, to the psychiatric emergency department at [facility] for safety.
[2020-07-07 11:09] VITALS: BP 121/79; PULSE 65; TEMP 98.2
--- NOTE | 2020-07-07 12:14 | DS ---
[facility] Detox Discharge Summary Admission Date: 07/03/20 Discharge Date: 07/07/20 - History Present History: Alcohol Dependence Additional Comments: 44 years old male was admitted on 07/03/20 for alcohol withdrawal sx management treated with librium detox regiment, mr willard requests valium for alcohol detox discontinue librium begin valium regiment since 07/06/20 mr willard states that valium does not work for him requests ativan emotional assurance to mr willard that ativan can be used for alcohol withdrawal management mr willard requests ativan 4 mg discuss the purpose of detox and reason for detox mr willard verbally states that he wants to hang himself and cut himself and jump out the window to kill himself, mr willard continues states that he want to and he dose not want to live 1:1 for suicidal observation inform psychiatrist for urgent referral concurred with psychiatrist decision that mr holliday has to be transferred to psychiatric hospital for safety of the patient and staff Pertinent Past History: time for discharge 120 minutes - Physical Exam Results Vital Signs: Vital Signs Temperature 98.2 F 07/07/20 10:45 Pulse Rate 65 07/07/20 10:45 Respiratory Rate 20 07/07/20 10:45 Blood Pressure 121/79 07/07/20 10:45 O2 Sat by Pulse Oximetry (%) 97 07/07/20 10:45 Pertinent Admission Physical Exam Findings: alcohol withdrawal Laboratory Tests 07/03/20 07/04/20 07/04/20 16:55 10:20 10:20 WBC 12.9 H RBC 5.00 Hgb 14.3 Hct 43.3 D MCV 86.6 MCH 28.6 MCHC 33.0 RDW 16.7 H Plt Count 159 D MPV 10.3 D Absolute Neuts (auto) 10.9 H Neutrophils % 84.7 H Lymphocytes % 8.8 D Monocytes % 5.4 Eosinophils % 0.7 Basophils % 0.4 Nucleated RBC % 0 Sodium Potassium Chloride Carbon Dioxide Anion Gap BUN Creatinine Est GFR (CKD-EPI)AfAm Est GFR (CKD-EPI)NonAf Random Glucose Calcium Total Bilirubin AST ALT Alkaline Phosphatase Total Protein Albumin Syphilis Serology Non-reactive COVID-19 (LUIS M) Not detected 07/04/20 10:20 WBC RBC Hgb Hct MCV MCH MCHC RDW Plt Count MPV Absolute Neuts (auto) Neutrophils % Lymphocytes % Monocytes % Eosinophils % Basophils % Nucleated RBC % Sodium 140 Potassium 3.6 Chloride 104 Carbon Dioxide 30 Anion Gap 6 L BUN 11.4 Creatinine 0.9 Est GFR (CKD-EPI)AfAm 121.67 Est GFR (CKD-EPI)NonAf 104.98 Random Glucose 93 Calcium 8.8 Total Bilirubin 0.5 AST 17 ALT 33 Alkaline Phosphatase 73 Total Protein 7.1 Albumin 3.8 Syphilis Serology COVID-19 (LUIS M) lab noted - Treatment Hospital Course: Detox Protocol Followed Patient has Accepted a Rehab Referral to: [facility] - Medication Discharge Medications: Ambulatory Orders NK [No Known Home Medication] 07/03/20 - Diagnosis (1) Alcohol dependence with uncomplicated withdrawal Current Visit: Yes Status: Acute (2) Nicotine dependence Current Visit: Yes Status: Acute Qualifiers: Nicotine product type: cigarettes Substance use status: in withdrawal Qualified Code(s): F17.213 - Nicotine dependence, cigarettes, with withdrawal (3) Weight loss Current Visit: Yes Status: Chronic (4) Methadone maintenance therapy patient Current Visit: Yes Status: Chronic (5) Substance induced mood disorder Current Visit: Yes Status: Suspected - AMA Did Patient Leave Against Medical Advice: No CIWA Score - CIWA Score Nausea/Vomitin-No Nausea/No Vomiting Muscle Tremors: None Anxiety: 3 Agitation: 0-Normal Activity Paroxysmal Sweats: No Perspiration Orientation: 0-Oriented Tacttile Disturbances: 0-None Auditory Disturbances: 0-None Visual Disturbances: 0-None Headache: 0-None Present CIWA-Ar Total Score: 3
[2020-07-08] MEDS ORDERED: diazePAM 5 MG TABLET PO ONE (05:00)
[2020-07-08] MEDS ORDERED: chlordiazePOXIDE HCL 10 MG CAPSULE PO ONE (05:00)
== END 2020-07-07 11:12 | disposition short-term general hospital (02) | DRG 773 ==
LOC: YASAS 14:38 → Y3N 16:49
PROVIDERS: ADMIT Allergy & Immunology; ATTEND Allergy & Immunology
PROC: HZ2ZZZZ Detoxification Services for Substance Abuse Treatment (ICD-10-PCS; principal; 2020-07-03)
DX: F10.230 Alcohol dependence with withdrawal, uncomplicated (principal); F11.20 Opioid dependence, uncomplicated; F12.20 Cannabis dependence, uncomplicated; F17.210 Nicotine dependence, cigarettes, uncomplicated; F31.9 Bipolar disorder, unspecified; F19.24 Other psychoactive substance dependence with psychoactive substance-induced mood disorder; R45.851 Suicidal ideations; G40.909 Epilepsy, unspecified, not intractable, without status epilepticus; R63.4 Abnormal weight loss; Z68.20 Body mass index [BMI] 20.0-20.9, adult; Z91.018 Allergy to other foods; Z59.0 Homelessness; Z91.19 Patient's noncompliance with other medical treatment and regimen
CPT/HCPCS: 36415; 80053; 85025; 86780; 93005; 93010; Q0162; U0003

== ENCOUNTER 2020-07-05 18:41 | Emergency (ER) | payer OTHER ==
[2020-07-05 19:07] VITALS: BP 103/72; PULSE 75; BMI 20.5
[2020-07-05] MEDS ORDERED: ONDANSETRON 4 MG/2 ML VIAL IVPUSH ONE (20:18)
[2020-07-05] MEDS ORDERED: LACTATED RINGERS SOLUTION 1000 ML INFUS.BAG IV ONE (20:18)
[2020-07-05] MEDS ORDERED: ACETAMINOPHEN 1000 MG/100 ML VIAL (NON FORMULARY) IVPB ONE (20:18)
[2020-07-05] MEDS ORDERED: ACETAMINOPHEN INJECTION 100 ML IVPB ONE (20:19)
[2020-07-05 20:59] LABS: BASO % 0.5 % (0-2.0); EOS % 2.5 % (0-4.5); HEMATOCRIT 45.4 % (35.4-49); HEMOGLOBIN 14.9 GM/dL (11.7-16.9); LYMPH % 26.6 % (8-40); MCH 28.6 pg (25.7-33.7); MCHC 32.9 g/dl (32.0-35.9); MEAN CELL VOLUME 86.8 fl (80-96); MEAN PLT VOLUME 9.5 fl (7.5-11.1); MONO % 12.2 % (3.8-10.2); NEUT % 58.2 % (42.8-82.8); PLATELET COUNT 149 K/MM3 (134-434); RBC 5.23 M/mm3 (4.00-5.60); RDW 16.9 % (11.9-15.9)
[2020-07-05 21:13] LABS: INR 0.87 (0.83-1.09); PROTHROMBIN TIME (PATIENT) 10.2 SEC (9.7-13.0)
[2020-07-05 21:16] LABS: ACTIVATED PTT 29.2 SECONDS (25.2-36.5)
[2020-07-05 21:25] LABS: ALBUMIN 3.6 g/dl (3.4-5.0); BILIRUBIN,TOTAL 0.1 mg/dL (0.2-1); BLOOD UREA NITROGEN 16.4 mg/dL (7-18); CALCIUM 9.3 mg/dL (8.5-10.1); CREATININE 0.9 mg/dL (0.55-1.3); POTASSIUM 4.7 mmol/L (3.5-5.1); TOT PROT 7.2 g/dl (6.4-8.2)
--- NOTE | 2020-07-05 21:36 | PDOC ---
History of Present Illness - General Chief Complaint: Seizure Stated Complaint: SEIZURES Time Seen by Provider: 07/05/20 19:05 - History of Present Illness Initial Comments: 07/05/20 21:24 44yo M w/ h/o polysubstance use sent from [facility] for reported seizure at their facility. Pt reports last thing he remembers was getting into bed in the afternoon. He then "woke up in the hallway surrounded by people." Pt is at [facility] for EtOH detox. States that he drinks 4-5 pints of vodka per day, and his recently threatened to divorce him if he refused detox. He claims to be motivated to detox successfully to stay . He states he is in pain and nauseous and has not been able to eat. He denies fever, cough/sore throat/rash. Past History - Medical History Allergies/Adverse Reactions: Allergies Allergy/AdvReac Type Severity Reaction Status Date / Time Pork/Porcine Containing Allergy Verified 07/05/20 19:07 Products Home Medications: Ambulatory Orders NK [No Known Home Medication] 07/03/20 Anemia: No Asthma: No Cancer: No Cardiac Disorders: No CVA: No COPD: No CHF: No Dementia: No Diabetes: No GI Disorders: No Disorders: No HTN: No Hypercholesterolemia: No Kidney Stones: No Liver Disease: No Seizures: No Thyroid Disease: No - Surgical History Abdominal Surgery: No Appendectomy: No Cardiac Surgery: No Cholecystectomy: No Lung Surgery: No Neurologic Surgery: No Orthopedic Surgery: No - Reproductive History Testicular Surgery: No - Immunization History Immunization Up to Date: Yes - Psycho-Social/Smoking History Smoking History: Current every day smoker Have you smoked in the past 12 months: Yes Number of Cigarettes Smoked Daily: 20 Cigars Per Day: 0 Information on smoking cessation initiated: Yes 'Breaking Loose' booklet given: 07/03/20 - Substance Abuse Hx (Audit-C & DAST Scrn) How often the patient has a drink containing alcohol: 4 0r more times/wk Number of drinks the patient has on a typical day: 10 or more How often the patient has six or more drinks on one occasion: Daily or almost daily Score: In Men: 4 or > Positive; In Women: 3 or > Positive: 12 Screen Result (Pos requires Nsg. Audit-10AR): Positive In the last yr the pt used illegal drug/Rx for NonMed reason: Yes Score: Yes response is considered Positive: 1 Screen Result (Positive result requires Nsg. DAST-10): Positive Review of Systems - Review of Systems Able to Perform ROS?: Yes Constitutional: Yes: Chills, Loss of Appetite, Malaise. No: Fever, Night Sweats HEENTM: No: Recent change in vision, Nose Congestion, Throat Swelling, Mouth Swelling Respiratory: No: Cough, Shortness of Breath, Productive cough Cardiac (ROS): No: Chest Pain, Lightheadedness, Palpitations ABD/GI: Yes: Nausea, Vomiting : No: Dysuria, Discharge, Hematuria, Pain Musculoskeletal: Yes: Back Pain, Muscle Pain Integumentary: Yes: Bruising, Dryness. No: Rash 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: Yes: Headache. No: Dizziness All Other Systems: Reviewed and Negative *Physical Exam - Vital Signs Last Vital Signs Temp Pulse Resp BP Pulse Ox 75 20 103/72 97 07/05/20 19:02 07/05/20 19:02 07/05/20 19:02 07/05/20 19:02 - Physical Exam General Appearance: Yes: Disheveled, Mild Distress (uncomfortable and argumentative, agitated. demanding strong pain medication), Thin HEENT: positive: EOMI, Normal Voice. negative: Scleral Icterus (R), Scleral Icterus (L) Neck: positive: Trachea midline. negative: Tender, Rigid, Decreased range of motion Respiratory/Chest: positive: Lungs Clear, Normal Breath Sounds. negative: Chest Tender, Accessory Muscle Use, Labored Respiration Cardiovascular: positive: Regular Rhythm, Regular Rate, S1, S2 Gastrointestinal/Abdominal: positive: Normal Bowel Sounds, Soft Musculoskeletal: positive: Normal Inspection. negative: CVA Tenderness, CVA T enderness (R) Extremity: positive: Normal Capillary Refill, Normal Inspection, Other (cut-nikunj scars appreciated on left forearm. multiple small scars on UEs and LEs appreciat ed. ) Integumentary: positive: Normal Color, Dry, Warm Neurologic: positive: Fully Oriented, Alert ED Treatment Course - LABORATORY CBC & Chemistry Diagram: 07/05/20 20:12 07/05/20 20:12 - ADDITIONAL ORDERS Additional order review: Laboratory Results 07/05/20 20:12 PT with INR 10.20 INR 0.87 PTT (Actin FS) 29.2 07/05/20 20:12 RBC 5.23 MCV 86.8 MCHC 32.9 RDW 16.9 H MPV 9.5 Neutrophils % 58.2 D Lymphocytes % 26.6 D Monocytes % 12.2 H D Eosinophils % 2.5 D Basophils % 0.5 - Medications Given in the ED: ED Medications Discontinued Medications Generic Name Dose Route Start Last Admin Trade Name Mickie PRN Reason Stop Dose Admin Acetaminophen 1,000 mg 07/05/20 20:18 07/05/20 20:31 Ofirmev Injection - IVPB 07/05/20 20:19 1,000 mg ONCE ONE Administration Lactated Ringer's 1,000 ml 07/05/20 20:18 07/05/20 20:31 Lactated Ringers Solution IV 07/05/20 20:19 1,000 ml ONCE ONE Administration Ondansetron HCl 4 mg 07/05/20 20:18 07/05/20 20:31 Zofran Injection IVPUSH 07/05/20 20:19 4 mg ONCE ONE Administration Medical Decision Making - Medical Decision Making Pt initially claiming he is acutely withdrawing from EtOH. No tongue or extremity fasiculations appreciated. Pupils not dilated, v/s wnl, pt not diaphoretic. Pt also claiming nausea and pain. asking for medicine. -> will give zofran and IV tylenol. Pt became combative and demanded stronger medication. This was discussed at length with patient. We conveyed that, in our clinical judgment, IV benzos or opioids (via any route) were clinically necessary at that time. We also expressed that we would be continually checking labs to ensure that he indeed did not need any other kind of anti -seizure intervention. He accepted our plan and became cooperative. Zofran, tylenol given. Reassessment after 30minutes: pain, nausea resolved. labs all WNL. EKG normal. no stigmata of withdrawal appreciated. -> safe to send back to [facility]. 07/05/20 22:39 Pt demanding librium. Spoke with [facility] RN- last librium dose was at 1030a m. We will provide 50mg Librium one time. RN at [facility] notified. 07/05/20 22:50 07/05/20 22:57 Discharge - Discharge Information Problems reviewed: Yes Clinical Impression/Diagnosis: Seizure, Dehydration Alcohol withdrawal Qualifiers: Complication of substance-induced condition: with unspecified complication Qualified Code(s): F10.239 - Alcohol dependence with withdrawal, unspecified Nicotine dependence Qualifiers: Nicotine product type: cigarettes Substance use status: uncomplicated Qualified Code(s): F17.210 - Nicotine dependence, cigarettes, uncomplicated Condition: Stable Disposition: JAIL FACILITY - Admission No - Follow up/Referral Referrals: Jimmy Valles MD [Staff Physician] - - Patient Discharge Instructions Additional Instructions: You came to the emergency department from [facility] after experiencing a seizure there. We tested your blood, looked at your heart's electrical activity, and we gave you medicine for pain and nausea. Your test results are normal, and you reported feeling better after the oatmeal and medicine. We deemed you safe to return to [facility]. Please follow up with the primary doctor listed in this packet within 48 hours of leaving the emergency department, and return if you have any new, worsening, or concerning symptoms - Post Discharge Activity
[2020-07-05] MEDS ORDERED: chlordiazePOXIDE HCL 25 MG CAPSULE PO ONE (22:38)
[2020-07-05] MEDS ORDERED: chlordiazePOXIDE HCL 25 MG CAPSULE ONE (22:44)
--- NOTE | 2020-07-05 22:59 | PDOC ---
Documentation entered by Eloy Mauro SCRIBE, acting as scribe for Delta Wilson MD. Delta Wilson MD: This documentation has been prepared by the Nj rodriguez Aaron, SCRIBE, under my direction and personally reviewed by me in its entirety. I confirm that the documentation accurately reflects all work, treatment, procedures, and medical decision making performed by me. Attending Attestation - Resident Resident Name: JoannaJohn Reece - ED Attending Attestation I have performed the following: I have examined & evaluated the patient, The case was reviewed & discussed with the resident, I agree w/resident's findings & plan, Exceptions are as noted - HPI HPI: 07/05/20 19:40 The patient is a 44 year old male with a significant PMH of substance (EtOH and Opioid) abuse and seizures who presents to the emergency department BIBA for possible seizure while at [facility] for EtOH detox. Patient reports drinking 4-5 pints per day, last drink was 5 pm yesterday prior to beginning detox at [facility]. Patient went to sleep this afternoon and woke up on the floor of the hallway with no knowledge of how he got there; [facility] suspected it was caused by a seizure so txp to [facility] for evaluation. Per Dr. Sethi's report, the patient was found down on the ground with <10 seconds of seizure like activity. Had no tongue biting, or incontinence. No post ictal period. Quick return to baseline. Pt had some purposeful movements during the episode. Pt was given ativan 2mg IM and send to ED. At this time, pt reports he feels like he is withdrawing and needs something stronger than the librium he is getting at [facility]. Denies hallucinations, headache, CP, SOB, diaphoresis. Patient receives 110 mg methadone, last dose was today. Patient endorses intermittent vomiting which he often experiences when he has etoh withdrawal. Patient has had regular BMs, the last one this morning. Patient endorses recent difficulty sleeping. Patient denies recent drug use, but notes the marijuana he smokes may be laced with crack. The patient denies head, neck, or back pain. Patient denies diaphoresis or any other symptoms. Allergies: Pork and porcine products Social Hx: EtOH and Opioid abuse PCP: Dr. Simmons - Physicial Exam PE: 07/05/20 22:23 GENERAL: Awake, alert, and fully oriented, in no acute distress. Thin, chronically ill appearing HEAD: No signs of trauma EYES: PERRLA, EOMI, sclera anicteric, conjunctiva clear ENT: Auricles normal inspection, hearing grossly normal, nares patent, oropharynx clear without exudates. Moist mucosa. No tongue fasiculations NECK: Normal ROM, supple, no lymphadenopathy, JVD, or masses LUNGS: Breath sounds equal, clear to auscultation bilaterally. No wheezes, and no crackles HEART: Regular rate and rhythm, normal S1 and S2, no murmurs, rubs or gallops ABDOMEN: Soft, nontender, normoactive bowel sounds. No guarding, no rebound. No masses EXTREMITIES: Normal range of motion, no edema. No clubbing or cyanosis. No cords, erythema, or tenderness BACK: No midline cervical, thoracic, or lumbar ttp NEUROLOGICAL: Normal speech, cranial nerves intact, negative pronator drift, 5/5 strength in all 4 extremities, normal sensation to light touch in all 4 extremities, normal cerebellar exam, normal gait, normal reflexes and tone. No tremors SKIN: Warm, Dry, normal turgor, no rashes or lesions noted. - Medical Decision Making 07/05/20 22:25 44-year-old male with a history of alcohol and opioid abuse, currently at [facility] for alcohol detox presents to the emergency department with possible sei zure. Vitals within normal limits, exam is unremarkable. There was some concern pt had a pseudoseizure given purposeful movements during event as well as lack of post ictal period, no tongue biting, no incontinence. He does however have a lower seizure threshold given current etoh detox, but clinically, he has no tremors and his BP, and HR are wnl making active etoh withdrawal unlikely. EKG is unremarkable. Pt monitored on tele with no abnormal rhythm While in the ED, pt is exhibiting drug seeking behavior, refusing IV tylenol and demanding IV ativan for alcohol withdrawal. Pt is not exhibiting any physical or vital sign evidence of etoh withdrawal and thus his current librium taper as managed by [facility] is sufficient in my clinical judgment . Pt became verbally aggressive with RN and other ED staff, demanding IV pain medications, jumping out of bed and security was called. Pt given 2 options - to be cooperative with our work up and refrain from any aggressive, verbal or physical abuse towards any ED staff or he will be discharged as he is medically cleared. Pt was cooperative at that point. Labs were drawn and wnl. He has not exhibited any evidence of alcohol withdrawal during observation in the ED. Per his scheduled Librium taper, patient was given Librium 50 mg. He is clinically stable for discharge back to [facility] to complete his detox. Dr. Marshall has communicated plan including dosage of Librium to the care team at [facility] and they have accepted him back to his bed. I discussed the physical exam findings, ancillary test results and final diagnoses with the patient. I answered all of the patient's questions. The patient was satisfied with the care received and felt comfortable with the discharge plan and treatment plan. The pt will return to the Emergency Department with any new, persistent or worsening symptoms. Heart Score/ECG Review #1 07/05/20 23:07 Twelve-lead EKG was performed and reviewed by me. Normal sinus rhythm, rate 74. Normal axis and intervals. No ST elevations or T wave inversions. Discharge - Discharge Information Problems reviewed: Yes Clinical Impression/Diagnosis: Seizure, Dehydration Alcohol withdrawal Qualifiers: Complication of substance-induced condition: with unspecified complication Qualified Code(s): F10.239 - Alcohol dependence with withdrawal, unspecified Nicotine dependence Qualifiers: Nicotine product type: cigarettes Substance use status: uncomplicated Qualified Code(s): F17.210 - Nicotine dependence, cigarettes, uncomplicated Condition: Stable Disposition: [facility] - Follow up/Referral Referrals: Jimmy Valles MD [Staff Physician] - - Patient Discharge Instructions Additional Instructions: You came to the emergency department from [facility] after experiencing a seizure there. We tested your blood, looked at your heart's electrical activity, and we gave you medicine for pain and nausea. Your test results are normal, and you reported feeling better after the oatmeal and medicine. We deemed you safe to return to [facility]. Please follow up with the primary doctor listed in this packet within 48 hours of leaving the emergency department, and return if you have any new, worsening, or concerning symptoms - Post Discharge Activity
--- NOTE | 2020-07-07 11:00 | EKG ---
Test Reason : Blood Pressure : / mmHG Vent. Rate : 074 BPM Atrial Rate : 074 BPM P-R Int : 130 ms QRS Dur : 090 ms QT Int : 402 ms P-R-T Axes : 051 058 068 degrees QTc Int : 446 ms NORMAL SINUS RHYTHM WHEN COMPARED WITH ECG OF 03-JUL-2020 15:56, NO SIGNIFICANT CHANGE WAS FOUND Confirmed by SOLIS SANTIAGO MD ([id number]) on 07/07/2020 11:00:11 AM Referred By: Confirmed By:SOLIS SANTIAGO MD
== END 2020-07-06 00:37 ==
LOC: JER 18:41
PROC: 3E033NZ Introduction of Analgesics, Hypnotics, Sedatives into Peripheral Vein, Percutaneous Approach (ICD-10-PCS; principal; 2020-07-05)
PROC: 3E033GC Introduction of Other Therapeutic Substance into Peripheral Vein, Percutaneous Approach (ICD-10-PCS; 2020-07-05)
DX: R56.9 Unspecified convulsions (principal); E86.0 Dehydration; F10.239 Alcohol dependence with withdrawal, unspecified; F17.210 Nicotine dependence, cigarettes, uncomplicated
CPT/HCPCS: 36415; 80053; 85025; 85610; 85730; 93005; 93010; 99285-25; J0131